=== PATIENT | male | born 1955 | race African-American/Black ===

== ENCOUNTER 2019-03-04 19:43 | Inpatient (IN) ==
[2019-03-04 20:19] LABS: Basophils # 0.1 10*3/uL (0.0-0.2); Basophils % 0.7 % (0.0-0.8); Eosinophils # 0.2 10*3/uL (0.0-0.87); Eosinophils % 2.9 % (0.00-10.9); Hemoglobin 11.9 GM/DL (14.0-18.0); Immature Granulocytes % 0.3 %; Immature Granulocytes Absolute 0.02 #; Lymphocytes # 1.8 10*3/uL (1.4-4.0); Lymphocytes % 25.2 % (21.2-54.2); Mean Corpuscular HGB Conc 30.5 GM/DL (32-36); Mean Platelet Volume 10.1 FL (9.6-12.0); Monocytes % 7.7 % (1.7-12.7); Neutrophils % 63.2 % (38.7-73.9); Platelet Count 188 T/CUMM (130-400); Red Blood Count 4.43 MC/CUMM (3.8-5.5); Red Cell Distribution Width 14.8 % (9.3-17.3)
[2019-03-04 20:45] LABS: Albumin 3.2 G/DL (3.4-5.0); Bilirubin,Total 0.5 MG/DL (0.2-1.0); CKMB % 1.6 %; Calcium 8.4 MG/DL (8.5-10.1); Osmolality,Calculated 284.1 MOS/KG (273-304); Total Protein 6.3 G/DL (6.4-8.3); Troponin I 0.184 NG/ML (0.00-0.045)
[2019-03-04] MEDS ORDERED: HEPARIN 5,000 UNIT/1 ML VIAL IV ONE (21:28)
[2019-03-04 21:51] LABS: INR 0.9; PT Patient Result 10.2 SECS (9.6-12.2); Partial Thromboplastin Time 27.9 SECS (20.8-36.0)
[2019-03-04 21:55] LABS: Apearance,Urine CLEAR (Clear); Bilirubin,Urine Negative (Negative); Blood, Urine Negative (Negative); Glucose,Urine (UA) Negative (Negative); Ketones,Urine Negative (Negative); Mucus,Urine Occasional /LPF (Occasional); Nitrite,Urine Negative (Negative); Protein,Urine Negative; RBC,Urine 1 /HPF (0-4); Urine Color Straw (Yellow); Urine Specific Gravity 1.009 (1.001-1.035); Urine Urobilinogen < 2.0 EU/DL (0.2-1.0); WBC,Urine <1 /HPF (0-6)
[2019-03-04] MEDS: HEPARIN DRIP 25,000 UNITS/500 ML PREMIX IV SCH (22:07)
[2019-03-04 23:05] LABS: Barbiturates Screen,Urine Negative (Negative); Benzodiazepines Screen,Urine Negative (Negative); Cannabinoid Screen,Urine Negative (Negative); Opiate Screen,Urine Negative (Negative); Phencyclidine Screen,Urine Negative (Negative)
[2019-03-05] MEDS ORDERED: ACETAMINOPHEN 325 MG TABLET PO PRN (00:27)
[2019-03-05] MEDS ORDERED: ONDANSETRON 4 MG/2 ML VIAL IV PRN (00:27)
[2019-03-05 01:35] LABS: PT Patient Result 10.5 SECS (9.6-12.2)
[2019-03-05 01:48] LABS: Partial Thromboplastin Time 72.1 SECS (20.8-36.0)
[2019-03-05 01:54] LABS: CKMB % 1.6 %; Troponin I 0.159 NG/ML (0.00-0.045)
[2019-03-05] MEDS: lisinopriL 5 MG TABLET PO SCH ×2 (09:00→21:07)
[2019-03-05] MEDS: PANTOPRAZOLE 40 MG TABLET PO SCH (09:00)
[2019-03-05] MEDS: ASPIRIN 325 MG TABLET PO SCH (09:00)
[2019-03-05] MEDS: carvediloL 6.25 MG TABLET PO SCH ×2 (09:00→21:07)
[2019-03-05 11:17] LABS: INR 0.9; PT Patient Result 10.1 SECS (9.6-12.2)
[2019-03-05 11:28] LABS: Partial Thromboplastin Time 51.2 SECS (20.8-36.0)
[2019-03-05] MEDS ORDERED: ATORVASTATIN 40 MG TABLET PO SCH (21:00)
[2019-03-05] MEDS: HEPARIN DRIP 25,000 UNITS/500 ML PREMIX IV SCH (22:59)
[2019-03-06] MEDS: carvediloL 12.5 MG TABLET PO SCH ×2 (05:30→09:16)
[2019-03-06 06:33] LABS: Calcium 8.6 MG/DL (8.5-10.1); Osmolality,Calculated 282.3 MOS/KG (273-304)
[2019-03-06 08:36] VITALS: BP 114/75
[2019-03-06] MEDS: ASPIRIN 325 MG TABLET PO SCH (09:16)
[2019-03-06] MEDS: PANTOPRAZOLE 40 MG TABLET PO SCH (09:16)
[2019-03-06] MEDS: lisinopriL 5 MG TABLET PO SCH (09:16)
== END 2019-03-06 13:01 | disposition home or self-care (01) | DRG 198 ==
LOC: N.EDINP 19:43 → N.ED 19:43 → N.TELEN 23:55
PROVIDERS: ADMIT Internal Medicine; ATTEND Internal Medicine

== ENCOUNTER 2020-07-02 09:53 | Observation (INO) ==
[2020-07-02 11:43] LABS: Basophils # 0.1 10*3/uL (0.0-0.2); Basophils % 0.8 % (0.0-0.8); Eosinophils # 0.3 10*3/uL (0.0-0.87); Eosinophils % 3.9 % (0.00-10.9); Hematocrit 42.9 VOL% (42.0-52.0); Immature Granulocytes % 0.3 %; Immature Granulocytes Absolute 0.02 #; Lymphocytes # 1.5 10*3/uL (1.4-4.0); Lymphocytes % 21.4 % (21.2-54.2); Mean Corpuscular HGB Conc 30.3 GM/DL (32-36); Mean Corpuscular Volume 90.5 FL (87-102); Mean Platelet Volume 10.3 FL (9.6-12.0); Monocytes % 10.7 % (1.7-12.7); Neutrophils % 62.9 % (38.7-73.9); Platelet Count 205 T/CUMM (130-400); Red Blood Count 4.74 MC/CUMM (3.8-5.5); Red Cell Distribution Width 13.4 % (9.3-17.3); White Blood Count 7.1 T/CUMM (4-12)
[2020-07-02 12:03] LABS: Alanine Aminotransferase 37 U/L (16-61); Albumin 3.4 G/DL (3.4-5.0); Alkaline Phosphatase 76 U/L (45-117); Aspartate Amino Transferase 37 U/L (0-37); Blood Urea Nitrogen 14 MG/DL (7-18); Calcium 8.7 MG/DL (8.5-10.1); Carbon Dioxide 27 MMOL/L (21-32); Estimated Glom Filtration Rate 81 ML/MIN; Glucose 94 MG/DL (74-106); Osmolality,Calculated 270.1 MOS/KG (273-304); Potassium 4.5 MMOL/L (3.5-5.1); Sodium 135 MMOL/L (136-145); Total Protein 6.5 G/DL (6.4-8.2); Troponin I 0.073 NG/ML (0.00-0.045)
[2020-07-02] MEDS ORDERED: DEXTROSE 50% 25 GM/50 ML VIAL IV PRN (13:43)
[2020-07-02] MEDS ORDERED: ACETAMINOPHEN 325 MG TABLET PO PRN (13:43)
[2020-07-02] MEDS ORDERED: ALBUTEROL 2.5 MG/3 ML NEB RESP TX PRN (13:43)
[2020-07-02] MEDS ORDERED: BISACODYL 5 MG TABLET PO PRN (13:43)
[2020-07-02] MEDS ORDERED: GLUCAGON 1 MG VIAL IM PRN (13:43)
[2020-07-02] MEDS ORDERED: guaiFENesin/DM ER 600-30 MG TABLET PO PRN (13:43)
[2020-07-02] MEDS ORDERED: ONDANSETRON 4 MG/2 ML VIAL IV PRN (13:43)
[2020-07-02] MEDS ORDERED: ASPIRIN CHEW 81 MG TABLET PO STA (13:53)
[2020-07-02] MEDS ORDERED: ENOXAPARIN 40 MG/0.4 ML SYRINGE SUBCUT SCH (14:00)
[2020-07-02] MEDS ORDERED: PNEUMOCOCCAL VACCINE (13 VALENT) 0.5 ML SYRINGE IM ONE (14:40)
[2020-07-02] MEDS: INSULIN LISPRO 100 UNIT/ML SUBCUT SCH ×2 (16:50→20:22)
[2020-07-02] MEDS: LATANOPROST 0.005% OPH SOLN 2.5 ML BOTTLE BOTH EYES SCH (20:22)
[2020-07-02] MEDS: carvediloL 12.5 MG TABLET PO SCH (20:22)
[2020-07-02] MEDS: ATORVASTATIN 40 MG TABLET PO SCH (20:22)
[2020-07-03 06:02] LABS: Basophils # 0.1 10*3/uL (0.0-0.2); Eosinophils # 0.3 10*3/uL (0.0-0.87); Eosinophils % 4.2 % (0.00-10.9); Hemoglobin 11.7 GM/DL (14.0-18.0); Immature Granulocytes % 0.3 %; Immature Granulocytes Absolute 0.02 #; Lymphocytes # 1.4 10*3/uL (1.4-4.0); Mean Corpuscular HGB Conc 30.8 GM/DL (32-36); Mean Corpuscular Volume 88.6 FL (87-102); Mean Platelet Volume 10.7 FL (9.6-12.0); Monocytes % 10.4 % (1.7-12.7); Neutrophils % 61.1 % (38.7-73.9); Platelet Count 200 T/CUMM (130-400); Red Blood Count 4.29 MC/CUMM (3.8-5.5); Red Cell Distribution Width 13.3 % (9.3-17.3)
[2020-07-03 06:27] LABS: Eosinophils 5 % (0-10); Hypochromasia Slight; Lymphocytes 18 % (20-55); Microcytosis Slight; Platelet Estimate Adequate; Segmented Neutrophils 65 % (50-85); Total Cells Counted 100
[2020-07-03 06:30] LABS: Calcium 8.5 MG/DL (8.5-10.1); Osmolality,Calculated 276.7 MOS/KG (273-304); Potassium 4.2 MMOL/L (3.5-5.1)
[2020-07-03] MEDS: carvediloL 12.5 MG TABLET PO SCH ×2 (08:19→21:51)
[2020-07-03] MEDS: FUROSEMIDE 40 MG/4 ML VIAL IV SCH (08:19)
[2020-07-03] MEDS: INSULIN LISPRO 100 UNIT/ML SUBCUT SCH ×4 (08:19→20:59)
[2020-07-03] MEDS: ASPIRIN EC 81 MG TABLET PO SCH (08:19)
[2020-07-03] MEDS: PANTOPRAZOLE 40 MG TABLET PO SCH (08:19)
[2020-07-03] MEDS: ENOXAPARIN 80 MG/0.8 ML SYRINGE SUBCUT SCH (16:43)
[2020-07-03] MEDS: LATANOPROST 0.005% OPH SOLN 2.5 ML BOTTLE BOTH EYES SCH (21:51)
[2020-07-03] MEDS: ATORVASTATIN 40 MG TABLET PO SCH (21:51)
[2020-07-04 07:49] VITALS: BP 98/62
[2020-07-04] MEDS: INSULIN LISPRO 100 UNIT/ML SUBCUT SCH (08:51)
[2020-07-04] MEDS: FUROSEMIDE 40 MG/4 ML VIAL IV SCH (08:52)
[2020-07-04] MEDS: PANTOPRAZOLE 40 MG TABLET PO SCH (08:52)
[2020-07-04] MEDS: ASPIRIN EC 81 MG TABLET PO SCH (08:52)
[2020-07-04] MEDS: ENOXAPARIN 80 MG/0.8 ML SYRINGE SUBCUT SCH (08:52)
[2020-07-04] MEDS: carvediloL 12.5 MG TABLET PO SCH (08:52)
== END 2020-07-04 10:35 | disposition home or self-care (01) ==
LOC: N.EDINP 09:53 → N.ED 09:53 → N.EDINP 14:23 → N.5E 14:29
PROVIDERS: ADMIT Internal Medicine; ATTEND Internal Medicine

== ENCOUNTER 2020-07-27 12:56 | Observation (INO) ==
[2020-07-27 13:37] LABS: Basophils # 0.1 10*3/uL (0.0-0.2); Eosinophils % 0.4 % (0.00-10.9); Hematocrit 40.7 VOL% (42.0-52.0); Hemoglobin 12.5 GM/DL (14.0-18.0); Immature Granulocytes % 0.4 %; Immature Granulocytes Absolute 0.03 #; Lymphocytes # 2.3 10*3/uL (1.4-4.0); Lymphocytes % 27.6 % (21.2-54.2); Mean Corpuscular HGB Conc 30.7 GM/DL (32-36); Mean Corpuscular Volume 88.9 FL (87-102); Mean Platelet Volume 10.9 FL (9.6-12.0); Monocytes % 6.9 % (1.7-12.7); Neutrophils % 63.7 % (38.7-73.9); Platelet Count 204 T/CUMM (130-400); Red Blood Count 4.58 MC/CUMM (3.8-5.5); Red Cell Distribution Width 13.7 % (9.3-17.3); White Blood Count 8.3 T/CUMM (4-12)
[2020-07-27 13:54] LABS: Albumin 3.7 G/DL (3.4-5.0); Bilirubin,Total 0.5 MG/DL (0.2-1.0); Calcium 8.9 MG/DL (8.5-10.1); Osmolality,Calculated 283.4 MOS/KG (273-304); Potassium 4.2 MMOL/L (3.5-5.1); Total Protein 6.5 G/DL (6.4-8.2)
[2020-07-27] MEDS ORDERED: FUROSEMIDE 40 MG/4 ML VIAL IV STA (14:31)
[2020-07-27 14:38] LABS: Acanthocytes 2+; Hypochromasia 2+; Lymphocytes 28 % (20-55); Platelet Estimate Normal; Poikilocytosis 2+; Segmented Neutrophils 69 % (50-85); Total Cells Counted 100
[2020-07-27] MEDS ORDERED: ZALEPLON 5 MG CAPSULE PO PRN (15:25)
[2020-07-27] MEDS ORDERED: MAGNESIUM SULF RIDER 2 GM/50 ML PREMIX IV PRN (15:25)
[2020-07-27] MEDS ORDERED: GLUCAGON 1 MG VIAL IM PRN (15:25)
[2020-07-27] MEDS ORDERED: ONDANSETRON 4 MG/2 ML VIAL IV PRN (15:25)
[2020-07-27] MEDS ORDERED: DEXTROSE 50% 25 GM/50 ML VIAL IV PRN (15:25)
[2020-07-27] MEDS ORDERED: MAGNESIUM SULF RIDER 4 GM/100 ML PREMIX IV PRN (15:25)
[2020-07-27 15:27] LABS: INR 1.1; Partial Thromboplastin Time 30.3 SECS (23.9-33.8)
[2020-07-27] MEDS ORDERED: ENOXAPARIN 40 MG/0.4 ML SYRINGE SUBCUT SCH (15:30)
[2020-07-27] MEDS ORDERED: FUROSEMIDE 40 MG/4 ML VIAL IV SCH (15:30)
[2020-07-27] MEDS ORDERED: FLUTICASONE 50 MCG NASAL SPRAY 16 GM BOTTLE BOTH NARES PRN (15:46)
[2020-07-27] MEDS ORDERED: COLCHICINE 0.6 MG CAPSULE PO SCH (16:00)
[2020-07-27 16:14] LABS: Calcium 8.9 MG/DL (8.5-10.1); Osmolality,Calculated 280.7 MOS/KG (273-304); Potassium 4.1 MMOL/L (3.5-5.1)
[2020-07-27 16:15] LABS: Risk Ratio 2.58; Thyroid Stimulating Hormone 0.753 uIU/ml (0.358-3.74)
[2020-07-27 16:19] LABS: ABG Base Excess -0.4 MMOL/L (-2.5-2.5); ABG HCO3 24.1 MMOL/L (20-26); ABG Oxygen Saturation 99.1 % (95-100); ABG PCO2 35.7 MM HG (35-48); ABG PH 7.426 (7.35-7.45); ABG TCO2 20.5 MMOL/L (23-27)
[2020-07-27] MEDS: FUROSEMIDE 40 MG/4 ML VIAL IV SCH (17:12)
[2020-07-27] MEDS: INSULIN REGULAR 100 UNIT/ML SUBCUT SCH (17:12)
[2020-07-27] MEDS: carvediloL 12.5 MG TABLET PO SCH (17:43)
[2020-07-27] MEDS: ALBUTEROL 2.5 MG/3 ML NEB RESP TX SCH (20:05)
[2020-07-27] MEDS: LATANOPROST 0.005% OPH SOLN 2.5 ML BOTTLE BOTH EYES SCH ×2 (21:26→22:26)
[2020-07-27] MEDS: MELATONIN 3 MG TABLET PO SCH (21:26)
[2020-07-27] MEDS: metFORMIN 500 MG TABLET PO SCH (21:27)
[2020-07-27] MEDS: PREGABALIN 75 MG CAPSULE PO SCH (21:27)
[2020-07-27] MEDS: APIXABAN 5 MG TABLET PO SCH (21:27)
[2020-07-27] MEDS: ATORVASTATIN 40 MG TABLET PO SCH (21:27)
[2020-07-27] MEDS: lisinopriL 5 MG TABLET PO SCH (21:38)
[2020-07-28 05:06] LABS: Basophils # 0.1 10*3/uL (0.0-0.2); Basophils % 0.9 % (0.0-0.8); Eosinophils # 0.1 10*3/uL (0.0-0.87); Eosinophils % 1.6 % (0.00-10.9); Hematocrit 36.4 VOL% (42.0-52.0); Hemoglobin 11.4 GM/DL (14.0-18.0); Immature Granulocytes % 0.4 %; Immature Granulocytes Absolute 0.03 #; Lymphocytes # 1.7 10*3/uL (1.4-4.0); Lymphocytes % 22.9 % (21.2-54.2); Mean Corpuscular HGB Conc 31.3 GM/DL (32-36); Mean Corpuscular Volume 87.5 FL (87-102); Mean Platelet Volume 10.7 FL (9.6-12.0); Monocytes % 9.7 % (1.7-12.7); Neutrophils % 64.5 % (38.7-73.9); Platelet Count 165 T/CUMM (130-400); Red Blood Count 4.16 MC/CUMM (3.8-5.5); Red Cell Distribution Width 13.6 % (9.3-17.3); White Blood Count 7.6 T/CUMM (4-12)
[2020-07-28 05:43] LABS: Calcium 8.4 MG/DL (8.5-10.1); Osmolality,Calculated 279.7 MOS/KG (273-304); Potassium 4.1 MMOL/L (3.5-5.1); Risk Ratio 2.89; Thyroid Stimulating Hormone 0.507 uIU/ml (0.358-3.74); VLDL CHOLESTEROL 11.8 MG/DL
[2020-07-28] MEDS: ALBUTEROL 2.5 MG/3 ML NEB RESP TX SCH ×4 (06:24→21:25)
[2020-07-28] MEDS ORDERED: PANTOPRAZOLE 40 MG TABLET PO SCH (09:00)
[2020-07-28] MEDS: metFORMIN 500 MG TABLET PO SCH ×2 (09:01→23:02)
[2020-07-28] MEDS: lisinopriL 5 MG TABLET PO SCH ×2 (09:02→21:58)
[2020-07-28] MEDS: FOLIC ACID 1 MG TABLET PO SCH (09:02)
[2020-07-28] MEDS: PREGABALIN 75 MG CAPSULE PO SCH ×3 (09:02→23:02)
[2020-07-28] MEDS: APIXABAN 5 MG TABLET PO SCH ×2 (09:02→22:26)
[2020-07-28] MEDS: ASPIRIN EC 81 MG TABLET PO SCH (09:02)
[2020-07-28] MEDS: carvediloL 12.5 MG TABLET PO SCH ×2 (09:02→17:07)
[2020-07-28] MEDS: PANTOPRAZOLE 40 MG TABLET PO SCH (09:02)
[2020-07-28] MEDS: FUROSEMIDE 40 MG/4 ML VIAL IV SCH ×2 (09:03→17:03)
[2020-07-28] MEDS: INSULIN REGULAR 100 UNIT/ML SUBCUT SCH ×2 (09:03→17:07)
[2020-07-28] MEDS ORDERED: DEXTROSE 50% 25 GM/50 ML VIAL IV PRN (15:48)
[2020-07-28] MEDS ORDERED: SODIUM CHLORIDE 0.9% 250 ML IV ONE (18:10)
[2020-07-28] MEDS: MELATONIN 3 MG TABLET PO SCH (22:26)
[2020-07-28] MEDS: ATORVASTATIN 40 MG TABLET PO SCH (22:26)
[2020-07-29] MEDS: ALBUTEROL 2.5 MG/3 ML NEB RESP TX SCH ×4 (02:23→19:39)
[2020-07-29 06:24] LABS: Basophils # 0.1 10*3/uL (0.0-0.2); Basophils % 0.9 % (0.0-0.8); Eosinophils # 0.1 10*3/uL (0.0-0.87); Eosinophils % 2.4 % (0.00-10.9); Hematocrit 38.5 VOL% (42.0-52.0); Hemoglobin 11.9 GM/DL (14.0-18.0); Immature Granulocytes % 0.3 %; Immature Granulocytes Absolute 0.02 #; Lymphocytes # 1.6 10*3/uL (1.4-4.0); Lymphocytes % 27.8 % (21.2-54.2); Mean Corpuscular HGB Conc 30.9 GM/DL (32-36); Mean Corpuscular Volume 87.7 FL (87-102); Mean Platelet Volume 10.7 FL (9.6-12.0); Monocytes % 8.4 % (1.7-12.7); Neutrophils % 60.2 % (38.7-73.9); Platelet Count 191 T/CUMM (130-400); Red Blood Count 4.39 MC/CUMM (3.8-5.5); Red Cell Distribution Width 13.5 % (9.3-17.3); White Blood Count 5.8 T/CUMM (4-12)
[2020-07-29 06:38] LABS: Osmolality,Calculated 279.8 MOS/KG (273-304); Potassium 3.6 MMOL/L (3.5-5.1)
[2020-07-29 07:36] LABS: Eosinophils 2 % (0-10); Lymphocytes 21 % (20-55); Segmented Neutrophils 66 % (50-85); Total Cells Counted 100
[2020-07-29 07:37] LABS: Hypochromasia 1+; Microcytosis Slight; Platelet Estimate Adequate
[2020-07-29] MEDS: INSULIN REGULAR 100 UNIT/ML SUBCUT SCH ×2 (09:16→15:40)
[2020-07-29] MEDS: PREGABALIN 75 MG CAPSULE PO SCH ×3 (09:32→20:55)
[2020-07-29] MEDS: carvediloL 12.5 MG TABLET PO SCH (09:33)
[2020-07-29] MEDS: PANTOPRAZOLE 40 MG TABLET PO SCH (09:33)
[2020-07-29] MEDS: APIXABAN 5 MG TABLET PO SCH ×2 (09:33→20:54)
[2020-07-29] MEDS: metFORMIN 500 MG TABLET PO SCH ×2 (09:33→20:54)
[2020-07-29] MEDS: FUROSEMIDE 40 MG/4 ML VIAL IV SCH (09:33)
[2020-07-29] MEDS: FOLIC ACID 1 MG TABLET PO SCH (09:33)
[2020-07-29] MEDS: ASPIRIN EC 81 MG TABLET PO SCH (09:33)
[2020-07-29] MEDS: lisinopriL 5 MG TABLET PO SCH (09:39)
[2020-07-29] MEDS ORDERED: carvediloL 6.25 MG TABLET PO SCH (17:00)
[2020-07-29] MEDS: MELATONIN 3 MG TABLET PO SCH (20:54)
[2020-07-29] MEDS: ATORVASTATIN 40 MG TABLET PO SCH (20:54)
[2020-07-29] MEDS: LATANOPROST 0.005% OPH SOLN 2.5 ML BOTTLE BOTH EYES SCH (20:55)
[2020-07-29] MEDS: lisinopriL 2.5 MG TABLET PO SCH (20:55)
[2020-07-30] MEDS: ALBUTEROL 2.5 MG/3 ML NEB RESP TX SCH ×4 (00:39→20:27)
[2020-07-30 05:54] LABS: Calcium 8.4 MG/DL (8.5-10.1); Osmolality,Calculated 277.7 MOS/KG (273-304); Potassium 4.1 MMOL/L (3.5-5.1)
[2020-07-30] MEDS: INSULIN REGULAR 100 UNIT/ML SUBCUT SCH ×2 (08:52→15:45)
[2020-07-30] MEDS: metFORMIN 500 MG TABLET PO SCH ×2 (09:50→20:58)
[2020-07-30] MEDS: FUROSEMIDE 40 MG/4 ML VIAL IV SCH (09:50)
[2020-07-30] MEDS: APIXABAN 5 MG TABLET PO SCH ×2 (09:50→20:59)
[2020-07-30] MEDS: ASPIRIN EC 81 MG TABLET PO SCH (09:50)
[2020-07-30] MEDS: PREGABALIN 75 MG CAPSULE PO SCH ×3 (09:50→20:59)
[2020-07-30] MEDS: carvediloL 3.125 MG TABLET PO SCH ×2 (09:50→11:19)
[2020-07-30] MEDS: FOLIC ACID 1 MG TABLET PO SCH (09:50)
[2020-07-30] MEDS: PANTOPRAZOLE 40 MG TABLET PO SCH (09:51)
[2020-07-30] MEDS: lisinopriL 2.5 MG TABLET PO SCH ×2 (09:51→11:19)
[2020-07-30] MEDS ORDERED: SODIUM CHLORIDE 0.9% 250 ML IV ONE (11:10)
[2020-07-30] MEDS: MELATONIN 3 MG TABLET PO SCH (20:58)
[2020-07-30] MEDS: ATORVASTATIN 40 MG TABLET PO SCH (20:59)
[2020-07-30] MEDS: LATANOPROST 0.005% OPH SOLN 2.5 ML BOTTLE BOTH EYES SCH (20:59)
[2020-07-31] MEDS: ALBUTEROL 2.5 MG/3 ML NEB RESP TX SCH ×2 (02:01→07:30)
[2020-07-31] MEDS: INSULIN REGULAR 100 UNIT/ML SUBCUT SCH (08:38)
[2020-07-31] MEDS ORDERED: FUROSEMIDE 40 MG TABLET PO SCH (09:00)
[2020-07-31] MEDS: metFORMIN 500 MG TABLET PO SCH (09:43)
[2020-07-31] MEDS: APIXABAN 5 MG TABLET PO SCH (09:44)
[2020-07-31] MEDS: FOLIC ACID 1 MG TABLET PO SCH (09:44)
[2020-07-31] MEDS: ASPIRIN EC 81 MG TABLET PO SCH (09:44)
[2020-07-31] MEDS: PREGABALIN 75 MG CAPSULE PO SCH (09:46)
[2020-07-31] MEDS: PANTOPRAZOLE 40 MG TABLET PO SCH (09:46)
[2020-07-31] MEDS ORDERED: carvediloL 3.125 MG TABLET PO SCH (10:00)
[2020-07-31 13:09] VITALS: BP 102/60
== END 2020-07-31 13:45 | disposition home or self-care (01) ==
LOC: N.EDINP 12:56 → N.ED 12:56 → SUATTDRO 16:11 → N.EDINP 16:57 → N.TELES 17:13
PROVIDERS: ADMIT Family Medicine; ATTEND Internal Medicine Geriatric Medicine

== ENCOUNTER 2020-09-22 20:10 | Observation (INO) ==
[2020-09-22 22:41] LABS: Basophils # 0.1 10*3/uL (0.0-0.2); Eosinophils # 0.2 10*3/uL (0.0-0.87); Eosinophils % 2.3 % (0.00-10.9); Hematocrit 39.8 VOL% (42.0-52.0); Hemoglobin 12.3 GM/DL (14.0-18.0); Immature Granulocytes % 0.3 %; Immature Granulocytes Absolute 0.02 #; Lymphocytes # 1.4 10*3/uL (1.4-4.0); Lymphocytes % 20.2 % (21.2-54.2); Mean Corpuscular HGB Conc 30.9 GM/DL (32-36); Mean Corpuscular Volume 87.1 FL (87-102); Mean Platelet Volume 10.5 FL (9.6-12.0); Monocytes % 8.7 % (1.7-12.7); Neutrophils % 67.5 % (38.7-73.9); Platelet Count 235 T/CUMM (130-400); Red Blood Count 4.57 MC/CUMM (3.8-5.5); Red Cell Distribution Width 15.1 % (9.3-17.3)
[2020-09-22 22:51] LABS: INR 1.1; PT Patient Result 12.4 SECS (10.5-12.0)
[2020-09-22 23:05] LABS: Albumin 3.1 G/DL (3.4-5.0); Bilirubin,Total 0.7 MG/DL (0.20-1.00); Calcium 8.4 MG/DL (8.5-10.1); Osmolality,Calculated 285.1 MOS/KG (273-304); Potassium 4.1 MMOL/L (3.5-5.1); Total Protein 5.7 G/DL (6.4-8.2)
[2020-09-22] MEDS ORDERED: DOBUTamine 500 MG/250 ML PREMIX IV PRN (23:52)
[2020-09-22] MEDS ORDERED: SODIUM CHLORIDE 0.9% 500 ML IV STA (23:53)
[2020-09-23] MEDS ORDERED: DEXTROSE 50% 25 GM/50 ML VIAL IV PRN (01:09)
[2020-09-23] MEDS ORDERED: ONDANSETRON 4 MG/2 ML VIAL IV PRN (01:09)
[2020-09-23] MEDS ORDERED: ACETAMINOPHEN 325 MG TABLET PO PRN (01:09)
[2020-09-23] MEDS ORDERED: GLUCAGON 1 MG VIAL IM PRN (01:09)
[2020-09-23] MEDS ORDERED: FUROSEMIDE 40 MG/4 ML VIAL IV STA (01:27)
[2020-09-23] MEDS ORDERED: ALBUTEROL INHALER 18 GM INH PRN (02:01)
[2020-09-23 07:22] LABS: Basophils # 0.1 10*3/uL (0.0-0.2); Basophils % 0.9 % (0.0-0.8); Eosinophils # 0.2 10*3/uL (0.0-0.87); Eosinophils % 2.6 % (0.00-10.9); Hematocrit 39.3 VOL% (42.0-52.0); Hemoglobin 12.7 GM/DL (14.0-18.0); Immature Granulocytes % 0.2 %; Immature Granulocytes Absolute 0.01 #; Lymphocytes # 1.1 10*3/uL (1.4-4.0); Lymphocytes % 19.6 % (21.2-54.2); Mean Corpuscular HGB Conc 32.3 GM/DL (32-36); Mean Corpuscular Volume 85.6 FL (87-102); Monocytes % 7.3 % (1.7-12.7); Neutrophils % 69.4 % (38.7-73.9); Platelet Count 232 T/CUMM (130-400); Red Blood Count 4.59 MC/CUMM (3.8-5.5); Red Cell Distribution Width 14.9 % (9.3-17.3); White Blood Count 5.8 T/CUMM (4-12)
[2020-09-23 08:04] LABS: Calcium 8.6 MG/DL (8.5-10.1); Osmolality,Calculated 285.1 MOS/KG (273-304); Potassium 3.6 MMOL/L (3.5-5.1)
[2020-09-23] MEDS: INSULIN LISPRO 100 UNIT/ML SUBCUT SCH ×4 (08:47→20:25)
[2020-09-23] MEDS: APIXABAN 5 MG TABLET PO SCH ×2 (08:48→21:18)
[2020-09-23] MEDS: CYPROHEPTADINE 4 MG TABLET PO SCH ×3 (08:48→21:17)
[2020-09-23] MEDS: ROSUVASTATIN 10 MG TABLET PO SCH (08:48)
[2020-09-23] MEDS: ASPIRIN EC 81 MG TABLET PO SCH (08:48)
[2020-09-23] MEDS: allopurinoL 100 MG TABLET PO SCH (08:48)
[2020-09-23] MEDS: PANTOPRAZOLE 40 MG TABLET PO SCH (08:48)
[2020-09-23] MEDS: carvediloL 3.125 MG TABLET PO SCH ×2 (08:48→21:17)
[2020-09-23] MEDS: LINACLOTIDE 145 MCG CAPSULE PO SCH (15:49)
[2020-09-23] MEDS ORDERED: FUROSEMIDE 40 MG/4 ML VIAL IV SCH (16:00)
[2020-09-24 05:53] LABS: Basophils # 0.1 10*3/uL (0.0-0.2); Basophils % 1.1 % (0.0-0.8); Eosinophils # 0.2 10*3/uL (0.0-0.87); Eosinophils % 3.3 % (0.00-10.9); Hematocrit 38.6 VOL% (42.0-52.0); Immature Granulocytes % 0.4 %; Immature Granulocytes Absolute 0.02 #; Lymphocytes # 1.5 10*3/uL (1.4-4.0); Lymphocytes % 27.4 % (21.2-54.2); Mean Corpuscular HGB Conc 31.1 GM/DL (32-36); Mean Corpuscular Volume 86.7 FL (87-102); Mean Platelet Volume 10.8 FL (9.6-12.0); Monocytes % 9.6 % (1.7-12.7); Neutrophils % 58.2 % (38.7-73.9); Platelet Count 233 T/CUMM (130-400); Red Blood Count 4.45 MC/CUMM (3.8-5.5); Red Cell Distribution Width 14.9 % (9.3-17.3); White Blood Count 5.5 T/CUMM (4-12)
[2020-09-24 06:23] LABS: Calcium 8.6 MG/DL (8.5-10.1); Osmolality,Calculated 280.5 MOS/KG (273-304); Potassium 3.4 MMOL/L (3.5-5.1)
[2020-09-24 07:00] LABS: Eosinophils 3 % (0-10); Hypochromasia 2+; Lymphocytes 23 % (20-55); Segmented Neutrophils 66 % (50-85); Total Cells Counted 100
[2020-09-24 07:01] LABS: Microcytosis 2+; Ovalocytes 1+; Platelet Estimate Normal; Polychromasia Slight
[2020-09-24] MEDS: INSULIN LISPRO 100 UNIT/ML SUBCUT SCH ×2 (07:38→11:25)
[2020-09-24] MEDS: LINACLOTIDE 145 MCG CAPSULE PO SCH (08:57)
[2020-09-24] MEDS: PANTOPRAZOLE 40 MG TABLET PO SCH (08:58)
[2020-09-24] MEDS: ASPIRIN EC 81 MG TABLET PO SCH (08:58)
[2020-09-24] MEDS: CYPROHEPTADINE 4 MG TABLET PO SCH (08:58)
[2020-09-24] MEDS: allopurinoL 100 MG TABLET PO SCH (08:58)
[2020-09-24] MEDS: APIXABAN 5 MG TABLET PO SCH (08:59)
[2020-09-24] MEDS: ROSUVASTATIN 10 MG TABLET PO SCH (08:59)
[2020-09-24] MEDS ORDERED: POTASSIUM CHLORIDE 20 MEQ TABLET PO ONE (09:02)
[2020-09-24] MEDS ORDERED: MAGNESIUM OXIDE 400 MG TABLET PO ONE (09:03)
[2020-09-24 11:37] VITALS: BP 97/73
[2020-09-24] MEDS: carvediloL 3.125 MG TABLET PO SCH (12:15)
== END 2020-09-24 14:50 | disposition home or self-care (01) ==
LOC: N.ED 20:10 → N.EDINP 20:10 → N.5E 09-23 02:55
PROVIDERS: ADMIT Internal Medicine; ATTEND Internal Medicine

== ENCOUNTER 2020-10-18 12:04 | Inpatient (IN) ==
[2020-10-18] MEDS ORDERED: DOCUSATE SODIUM 100 MG CAPSULE PO PRN (12:22)
[2020-10-18] MEDS ORDERED: ACETAMINOPHEN 325 MG TABLET PO PRN (12:22)
[2020-10-18] MEDS ORDERED: ONDANSETRON 4 MG/2 ML VIAL IV PRN (12:22)
[2020-10-18] MEDS ORDERED: guaiFENesin/DM ER 600-30 MG TABLET PO PRN (12:22)
[2020-10-18] MEDS ORDERED: MAGNESIUM SULF RIDER 2 GM/50 ML PREMIX IV PRN (12:22)
[2020-10-18] MEDS ORDERED: BISACODYL 5 MG TABLET PO PRN (12:22)
[2020-10-18] MEDS ORDERED: MAGNESIUM SULF RIDER 4 GM/100 ML PREMIX IV PRN (12:22)
[2020-10-18] MEDS ORDERED: MORPHINE 2 MG/1 ML SYRINGE IV PRN (12:22)
[2020-10-18] MEDS ORDERED: diphenhydrAMINE CAP 25 MG CAPSULE PO PRN (12:22)
[2020-10-18] MEDS ORDERED: ZALEPLON 5 MG CAPSULE PO PRN (12:22)
[2020-10-18] MEDS ORDERED: ALUMINUM/MAGNES/SIMETH MAX STR 30 ML UDCUP PO PRN (12:22)
[2020-10-18] MEDS ORDERED: PROMETHAZINE 25 MG TABLET PO PRN (12:22)
[2020-10-18] MEDS ORDERED: hydrALAZINE 20 MG/1 ML VIAL IV PRN (12:22)
[2020-10-18 14:01] LABS: Basophils # 0.1 10*3/uL (0.0-0.2); Eosinophils # 0.1 10*3/uL (0.0-0.87); Eosinophils % 1.3 % (0.00-10.9); Hematocrit 39.9 VOL% (42.0-52.0); Hemoglobin 12.1 GM/DL (14.0-18.0); Immature Granulocytes % 0.4 %; Immature Granulocytes Absolute 0.03 #; Lymphocytes # 1.5 10*3/uL (1.4-4.0); Lymphocytes % 18.8 % (21.2-54.2); Mean Corpuscular HGB Conc 30.3 GM/DL (32-36); Mean Corpuscular Volume 87.3 FL (87-102); Mean Platelet Volume 9.5 FL (9.6-12.0); Monocytes % 5.3 % (1.7-12.7); Neutrophils % 73.2 % (38.7-73.9); Platelet Count 290 T/CUMM (130-400); Red Blood Count 4.57 MC/CUMM (3.8-5.5); Red Cell Distribution Width 14.8 % (9.3-17.3); White Blood Count 7.7 T/CUMM (4-12)
[2020-10-18 14:37] LABS: Albumin 2.9 G/DL (3.4-5.0); Bilirubin,Total 0.7 MG/DL (0.20-1.00); Osmolality,Calculated 278.8 MOS/KG (273-304); Potassium 3.9 MMOL/L (3.5-5.1); Total Protein 7.2 G/DL (6.4-8.2)
[2020-10-18] MEDS: FUROSEMIDE 40 MG/4 ML VIAL IV SCH (16:23)
[2020-10-18] MEDS: DOBUTamine 500 MG/250 ML PREMIX IV SCH (17:20)
[2020-10-18] MEDS: APIXABAN 5 MG TABLET PO SCH (20:36)
[2020-10-18] MEDS: GABAPENTIN 300 MG CAPSULE PO SCH (20:36)
[2020-10-18] MEDS: LATANOPROST 0.005% OPH SOLN 2.5 ML BOTTLE LEFT EYE SCH (20:40)
[2020-10-19 03:20] LABS: Basophils # 0.1 10*3/uL (0.0-0.2); Basophils % 0.9 % (0.0-0.8); Eosinophils # 0.1 10*3/uL (0.0-0.87); Eosinophils % 1.2 % (0.00-10.9); Hematocrit 33.6 VOL% (42.0-52.0); Hemoglobin 10.5 GM/DL (14.0-18.0); Immature Granulocytes % 0.3 %; Immature Granulocytes Absolute 0.03 #; Lymphocytes # 1.6 10*3/uL (1.4-4.0); Lymphocytes % 17.7 % (21.2-54.2); Mean Corpuscular HGB Conc 31.3 GM/DL (32-36); Mean Corpuscular Volume 85.5 FL (87-102); Mean Platelet Volume 9.6 FL (9.6-12.0); Monocytes % 6.3 % (1.7-12.7); Neutrophils % 73.6 % (38.7-73.9); Platelet Count 253 T/CUMM (130-400); Red Blood Count 3.93 MC/CUMM (3.8-5.5); Red Cell Distribution Width 14.5 % (9.3-17.3); White Blood Count 9.2 T/CUMM (4-12)
[2020-10-19 03:43] LABS: Albumin 2.5 G/DL (3.4-5.0); Bilirubin,Total 1.1 MG/DL (0.20-1.00); Calcium 8.3 MG/DL (8.5-10.1); Potassium 3.9 MMOL/L (3.5-5.1)
[2020-10-19] MEDS ORDERED: lisinopriL 2.5 MG TABLET PO SCH (09:00)
[2020-10-19] MEDS: POTASSIUM CHLORIDE 10 MEQ TABLET PO SCH (09:11)
[2020-10-19] MEDS: APIXABAN 5 MG TABLET PO SCH ×2 (09:11→20:29)
[2020-10-19] MEDS: allopurinoL 100 MG TABLET PO SCH (09:11)
[2020-10-19] MEDS: ROSUVASTATIN 10 MG TABLET PO SCH (09:11)
[2020-10-19] MEDS: MULTIVITAMIN (CENTRUM) TABLET PO SCH (09:11)
[2020-10-19] MEDS: LORATADINE 10 MG TABLET PO SCH (09:11)
[2020-10-19] MEDS: GABAPENTIN 300 MG CAPSULE PO SCH ×2 (09:11→20:29)
[2020-10-19] MEDS: PANTOPRAZOLE 40 MG TABLET PO SCH (09:11)
[2020-10-19] MEDS: LINACLOTIDE 145 MCG CAPSULE PO SCH (09:12)
[2020-10-19] MEDS: FUROSEMIDE 40 MG/4 ML VIAL IV SCH ×2 (09:20→17:35)
[2020-10-19] MEDS: LATANOPROST 0.005% OPH SOLN 2.5 ML BOTTLE LEFT EYE SCH ×2 (09:20→20:29)
[2020-10-19] MEDS: DOBUTamine 500 MG/250 ML PREMIX IV SCH (15:56)
[2020-10-20 05:14] LABS: Calcium 8.3 MG/DL (8.5-10.1); Osmolality,Calculated 271.1 MOS/KG (273-304); Potassium 3.5 MMOL/L (3.5-5.1)
[2020-10-20] MEDS: FUROSEMIDE 40 MG/4 ML VIAL IV SCH ×2 (09:23→15:18)
[2020-10-20] MEDS: LATANOPROST 0.005% OPH SOLN 2.5 ML BOTTLE LEFT EYE SCH ×2 (09:29→21:00)
[2020-10-20] MEDS: LINACLOTIDE 145 MCG CAPSULE PO SCH (09:30)
[2020-10-20] MEDS: LORATADINE 10 MG TABLET PO SCH (09:32)
[2020-10-20] MEDS: PANTOPRAZOLE 40 MG TABLET PO SCH (09:32)
[2020-10-20] MEDS: ROSUVASTATIN 10 MG TABLET PO SCH (09:32)
[2020-10-20] MEDS: GABAPENTIN 300 MG CAPSULE PO SCH ×2 (09:32→21:01)
[2020-10-20] MEDS: MULTIVITAMIN (CENTRUM) TABLET PO SCH (09:32)
[2020-10-20] MEDS: POTASSIUM CHLORIDE 10 MEQ TABLET PO SCH (09:32)
[2020-10-20] MEDS: allopurinoL 100 MG TABLET PO SCH (09:33)
[2020-10-20] MEDS: APIXABAN 5 MG TABLET PO SCH ×2 (09:33→21:00)
[2020-10-20] MEDS ORDERED: POTASSIUM CHLORIDE 20 MEQ TABLET PO ONE (09:37)
[2020-10-20] MEDS: DOBUTamine 500 MG/250 ML PREMIX IV SCH (15:22)
[2020-10-21 06:26] LABS: Calcium 8.8 MG/DL (8.5-10.1); Osmolality,Calculated 265.4 MOS/KG (273-304); Potassium 3.8 MMOL/L (3.5-5.1)
[2020-10-21] MEDS: LATANOPROST 0.005% OPH SOLN 2.5 ML BOTTLE LEFT EYE SCH ×2 (09:11→20:59)
[2020-10-21] MEDS: APIXABAN 5 MG TABLET PO SCH ×2 (09:12→20:36)
[2020-10-21] MEDS: carvediloL 3.125 MG TABLET PO SCH ×2 (09:12→20:37)
[2020-10-21] MEDS: LINACLOTIDE 145 MCG CAPSULE PO SCH (09:12)
[2020-10-21] MEDS: MULTIVITAMIN (CENTRUM) TABLET PO SCH (09:12)
[2020-10-21] MEDS: ROSUVASTATIN 10 MG TABLET PO SCH (09:12)
[2020-10-21] MEDS: GABAPENTIN 300 MG CAPSULE PO SCH ×2 (09:13→20:36)
[2020-10-21] MEDS: allopurinoL 100 MG TABLET PO SCH (09:13)
[2020-10-21] MEDS: LORATADINE 10 MG TABLET PO SCH (09:13)
[2020-10-21] MEDS: PANTOPRAZOLE 40 MG TABLET PO SCH (09:13)
[2020-10-21] MEDS: POTASSIUM CHLORIDE 10 MEQ TABLET PO SCH (09:13)
[2020-10-21] MEDS: FUROSEMIDE 40 MG/4 ML VIAL IV SCH ×2 (10:59→16:40)
[2020-10-21] MEDS: DAPAGLIFLOZIN 5 MG TABLET PO SCH (11:12)
[2020-10-21] MEDS: DOBUTamine 500 MG/250 ML PREMIX IV SCH (18:15)
[2020-10-22 06:17] LABS: Osmolality,Calculated 271.1 MOS/KG (273-304); Potassium 4.9 MMOL/L (3.5-5.1)
[2020-10-22 06:26] LABS: Basophils # 0.1 10*3/uL (0.0-0.2); Basophils % 1.4 % (0.0-0.8); Eosinophils # 0.2 10*3/uL (0.0-0.87); Eosinophils % 2.1 % (0.00-10.9); Hematocrit 40.7 VOL% (42.0-52.0); Hemoglobin 12.6 GM/DL (14.0-18.0); Immature Granulocytes % 0.4 %; Immature Granulocytes Absolute 0.03 #; Lymphocytes # 1.3 10*3/uL (1.4-4.0); Lymphocytes % 17.8 % (21.2-54.2); Mean Corpuscular Volume 87.3 FL (87-102); Mean Platelet Volume 10.1 FL (9.6-12.0); Monocytes % 7.7 % (1.7-12.7); Neutrophils % 70.6 % (38.7-73.9); Platelet Count 300 T/CUMM (130-400); Red Blood Count 4.66 MC/CUMM (3.8-5.5); Red Cell Distribution Width 14.6 % (9.3-17.3)
[2020-10-22] MEDS: LINACLOTIDE 145 MCG CAPSULE PO SCH (08:56)
[2020-10-22] MEDS: DAPAGLIFLOZIN 5 MG TABLET PO SCH (08:57)
[2020-10-22] MEDS: ROSUVASTATIN 10 MG TABLET PO SCH (08:59)
[2020-10-22] MEDS: POTASSIUM CHLORIDE 10 MEQ TABLET PO SCH (08:59)
[2020-10-22] MEDS: carvediloL 3.125 MG TABLET PO SCH ×2 (09:01→21:28)
[2020-10-22] MEDS: allopurinoL 100 MG TABLET PO SCH (09:01)
[2020-10-22] MEDS: LORATADINE 10 MG TABLET PO SCH (09:01)
[2020-10-22] MEDS: PANTOPRAZOLE 40 MG TABLET PO SCH (09:01)
[2020-10-22] MEDS: GABAPENTIN 300 MG CAPSULE PO SCH ×2 (09:01→21:28)
[2020-10-22] MEDS: MULTIVITAMIN (CENTRUM) TABLET PO SCH (09:01)
[2020-10-22] MEDS: APIXABAN 5 MG TABLET PO SCH ×2 (09:01→21:28)
[2020-10-22] MEDS: LATANOPROST 0.005% OPH SOLN 2.5 ML BOTTLE LEFT EYE SCH ×2 (09:04→21:29)
[2020-10-22] MEDS: FUROSEMIDE 40 MG/4 ML VIAL IV SCH ×2 (10:45→16:32)
[2020-10-23 06:21] LABS: Calcium 9.1 MG/DL (8.5-10.1)
[2020-10-23 07:43] VITALS: BP 100/75
[2020-10-23] MEDS: POTASSIUM CHLORIDE 10 MEQ TABLET PO SCH (08:34)
[2020-10-23] MEDS: ROSUVASTATIN 10 MG TABLET PO SCH (08:34)
[2020-10-23] MEDS: MULTIVITAMIN (CENTRUM) TABLET PO SCH (08:34)
[2020-10-23] MEDS: LINACLOTIDE 145 MCG CAPSULE PO SCH (08:34)
[2020-10-23] MEDS: PANTOPRAZOLE 40 MG TABLET PO SCH (08:35)
[2020-10-23] MEDS: allopurinoL 100 MG TABLET PO SCH (08:35)
[2020-10-23] MEDS: DAPAGLIFLOZIN 5 MG TABLET PO SCH (08:35)
[2020-10-23] MEDS: GABAPENTIN 300 MG CAPSULE PO SCH (08:35)
[2020-10-23] MEDS: APIXABAN 5 MG TABLET PO SCH (08:35)
[2020-10-23] MEDS: LORATADINE 10 MG TABLET PO SCH (08:35)
[2020-10-23] MEDS: carvediloL 3.125 MG TABLET PO SCH (08:35)
[2020-10-23] MEDS: FUROSEMIDE 40 MG/4 ML VIAL IV SCH (08:40)
[2020-10-23] MEDS: LATANOPROST 0.005% OPH SOLN 2.5 ML BOTTLE LEFT EYE SCH (08:41)
== END 2020-10-23 09:30 | disposition home or self-care (01) | DRG 291 ==
LOC: N.TELES 13:12
PROVIDERS: ADMIT Internal Medicine Cardiovascular Disease; ATTEND Internal Medicine Cardiovascular Disease

== ENCOUNTER 2020-12-18 17:08 | Inpatient (IN) ==
[2020-12-18 18:19] LABS: Basophils # 0.1 10*3/uL (0.0-0.2); Basophils % 0.9 % (0.0-0.8); Eosinophils % 0.3 % (0.00-10.9); Hematocrit 42.1 VOL% (42.0-52.0); Hemoglobin 13.3 GM/DL (14.0-18.0); Immature Granulocytes % 0.7 %; Immature Granulocytes Absolute 0.07 #; Lymphocytes # 1.9 10*3/uL (1.4-4.0); Lymphocytes % 17.8 % (21.2-54.2); Mean Corpuscular HGB Conc 31.6 GM/DL (32-36); Mean Corpuscular Volume 84.9 FL (87-102); Mean Platelet Volume 10.7 FL (9.6-12.0); Monocytes % 9.5 % (1.7-12.7); NRBC # 0.03 10*3/uL; Neutrophils % 70.8 % (38.7-73.9); Platelet Count 237 T/CUMM (130-400); Red Blood Count 4.96 MC/CUMM (3.8-5.5); Red Cell Distribution Width 16.6 % (9.3-17.3); White Blood Count 10.5 T/CUMM (4-12)
[2020-12-18 18:21] LABS: Albumin 3.5 G/DL (3.4-5.0); Bilirubin,Total 1.3 MG/DL (0.20-1.00); Calcium 9.2 MG/DL (8.5-10.1); Osmolality,Calculated 275.2 MOS/KG (273-304); Potassium 4.3 MMOL/L (3.5-5.1); Total Protein 7.2 G/DL (6.4-8.2)
[2020-12-18 18:51] LABS: INR 1.2; PT Patient Result 12.9 SECS (10.5-12.0)
[2020-12-18] MEDS ORDERED: FUROSEMIDE 100 MG/10 ML VIAL IV STA (18:54)
[2020-12-18] MEDS ORDERED: AZITHROMYCIN INJ 500 MG in SODIUM CHLORIDE 0.9% 250 ML IV STA (19:48)
[2020-12-18] MEDS ORDERED: cefTRIAXone 1,000 MG in SODIUM CHLORIDE 0.9% 100 ML IV STA (19:48)
[2020-12-18] MEDS ORDERED: ONDANSETRON 4 MG/2 ML VIAL IV PRN (20:13)
[2020-12-18] MEDS ORDERED: GLUCAGON 1 MG VIAL IM PRN (20:13)
[2020-12-18] MEDS ORDERED: POTASSIUM CHLORIDE 20 MEQ TABLET PO PRN (20:42)
[2020-12-18] MEDS ORDERED: ALBUTEROL 2.5 MG/3 ML NEB RESP TX PRN (20:51)
[2020-12-18] MEDS ORDERED: LORATADINE 10 MG TABLET PO PRN (20:51)
[2020-12-18] MEDS ORDERED: INSULIN REGULAR 100 UNIT/ML SUBCUT SCH (21:00)
[2020-12-18] MEDS ORDERED: EPINEPHrine 1 MG/10 ML SYRINGE IV ONE (21:07)
[2020-12-18] MEDS ORDERED: SODIUM BICARBONATE 50 MEQ/50 ML SYRINGE IV ONE (21:08)
[2020-12-18] MEDS ORDERED: DOBUTamine 500 MG/250 ML PREMIX IV ONE (21:13)
[2020-12-18] MEDS ORDERED: ETOMIDATE 20 MG/10 ML VIAL IV ONE (21:15)
[2020-12-18] MEDS ORDERED: ROCURONIUM 100 MG/10 ML VIAL IV ONE (21:15)
[2020-12-18] MEDS: NOREPINEPHRINE 8 MG in SODIUM CHLORIDE 0.9% 242 ML IV PRN (22:00)
[2020-12-18 22:31] LABS: ABG Base Excess -17.4 MMOL/L (-2.5-2.5); ABG HCO3 11.4 MMOL/L (20-26); ABG Oxygen Saturation 99.3 % (95-100); ABG PCO2 26.1 MM HG (35-48); ABG TCO2 9.2 MMOL/L (23-27)
[2020-12-18 22:36] LABS: ABG PH 7.182 (7.35-7.45)
[2020-12-18 22:46] LABS: Basophils # 0.1 10*3/uL (0.0-0.2); Eosinophils # 0.1 10*3/uL (0.0-0.87); Eosinophils % 0.5 % (0.00-10.9); Hematocrit 45.8 VOL% (42.0-52.0); Immature Granulocytes % 6.9 %; Immature Granulocytes Absolute 0.85 #; Lymphocytes # 2.9 10*3/uL (1.4-4.0); Lymphocytes % 23.7 % (21.2-54.2); Mean Corpuscular HGB Conc 29.9 GM/DL (32-36); Mean Corpuscular Volume 88.1 FL (87-102); Mean Platelet Volume 10.6 FL (9.6-12.0); NRBC # 0.14 10*3/uL; Neutrophils % 62.9 % (38.7-73.9); Platelet Count 205 T/CUMM (130-400); White Blood Count 12.3 T/CUMM (4-12)
[2020-12-18 23:06] LABS: Hemoglobin 13.7 GM/DL (14.0-18.0)
[2020-12-18 23:07] LABS: Blood Urea Nitrogen 32 MG/DL (7-18); Calcium 8.4 MG/DL (8.5-10.1); Carbon Dioxide 21 MMOL/L (21-32); Estimated Glom Filtration Rate 33 ML/MIN; Glucose 78 MG/DL (74-106); Potassium 4.7 MMOL/L (3.5-5.1); Sodium 136 MMOL/L (136-145)
[2020-12-18 23:10] LABS: Band Neutrophils 7 % (0-10); Eosinophils 2 % (0-10); Lymphocytes 20 % (20-55); Nucleated Red Blood Cells 1 (0-5); Platelet Estimate Normal; Segmented Neutrophils 64 % (50-85); Total Cells Counted 100
[2020-12-18] MEDS ORDERED: SODIUM BICARBONATE 50 MEQ/50 ML VIAL IV ONE ×2 (23:11)
[2020-12-18] MEDS: DOBUTamine 500 MG/250 ML PREMIX IV PRN (23:28)
[2020-12-18 23:46] LABS: ABG Base Excess -8.4 MMOL/L (-2.5-2.5); ABG HCO3 17.7 MMOL/L (20-26); ABG Oxygen Saturation 99.5 % (95-100); ABG PCO2 30.2 MM HG (35-48); ABG PH 7.342 (7.35-7.45); ABG TCO2 15.1 MMOL/L (23-27)
[2020-12-19] MEDS: DEXTROSE 50% 25 GM/50 ML VIAL IV PRN (00:04)
[2020-12-19] MEDS: SODIUM BICARB INJ 150 MEQ in STERILE WATER INJ 1,000 ML IV SCH ×2 (00:07→12:33)
[2020-12-19] MEDS ORDERED: NOREPINEPHRINE 4 MG/4 ML VIAL IV ONE (00:14)
[2020-12-19] MEDS: NOREPINEPHRINE 8 MG in SODIUM CHLORIDE 0.9% 242 ML IV PRN (00:30)
[2020-12-19] MEDS ORDERED: ETOMIDATE 20 MG/10 ML VIAL IV ONE (00:45)
[2020-12-19] MEDS ORDERED: ROCURONIUM 100 MG/10 ML VIAL IV ONE (00:45)
[2020-12-19 00:51] LABS: Basophils # 0.1 10*3/uL (0.0-0.2); Basophils % 1.2 % (0.0-0.8); Eosinophils % 0.2 % (0.00-10.9); Hemoglobin 13.8 GM/DL (14.0-18.0); Immature Granulocytes % 6.6 %; Immature Granulocytes Absolute 0.79 #; Lymphocytes # 2.6 10*3/uL (1.4-4.0); Lymphocytes % 21.4 % (21.2-54.2); Mean Corpuscular HGB Conc 31.4 GM/DL (32-36); Mean Corpuscular Volume 85.6 FL (87-102); Monocytes % 7.1 % (1.7-12.7); NRBC # 0.13 10*3/uL; Neutrophils % 63.5 % (38.7-73.9); Platelet Count 175 T/CUMM (130-400); Red Blood Count 5.14 MC/CUMM (3.8-5.5); Red Cell Distribution Width 16.5 % (9.3-17.3); White Blood Count 12.1 T/CUMM (4-12)
[2020-12-19] MEDS: fentaNYL INJ 1,250 MCG in SODIUM CHLORIDE 0.9% 225 ML IV PRN ×2 (01:04→20:10)
[2020-12-19] MEDS: MIDAZOLAM 100 MG in SODIUM CHLORIDE 0.9% 80 ML IV PRN (01:07)
[2020-12-19] MEDS ORDERED: INFLUENZA VIRUS VACCINE 0.5 ML SYRINGE IM ONE (01:12)
[2020-12-19 01:18] LABS: INR 1.3; PT Patient Result 14.7 SECS (10.5-12.0); Partial Thromboplastin Time 22.1 SECS (23.9-33.8)
[2020-12-19 01:22] LABS: Alanine Aminotransferase 103 U/L (16-61); Albumin 3.1 G/DL (3.4-5.0); Alkaline Phosphatase 67 U/L (45-117); Amylase 172 U/L (25-115); Aspartate Amino Transferase 171 U/L (0-37); Blood Urea Nitrogen 37 MG/DL (7-18); Calcium 7.4 MG/DL (8.5-10.1); Carbon Dioxide 25 MMOL/L (21-32); Estimated Glom Filtration Rate 35 ML/MIN; Glucose 228 MG/DL (74-106); Potassium 5.4 MMOL/L (3.5-5.1); Sodium 136 MMOL/L (136-145); Total Protein 5.3 G/DL (6.4-8.2)
[2020-12-19 01:41] LABS: Platelet Estimate Normal
[2020-12-19] MEDS: GABAPENTIN 300 MG CAPSULE PO SCH ×3 (02:36→22:00)
[2020-12-19] MEDS: CYPROHEPTADINE 4 MG TABLET PO SCH ×4 (02:36→22:00)
[2020-12-19] MEDS: APIXABAN 5 MG TABLET PO SCH ×3 (02:36→22:00)
[2020-12-19 02:37] LABS: Calcium 7.6 MG/DL (8.5-10.1); Osmolality,Calculated 289.7 MOS/KG (273-304); Potassium 3.8 MMOL/L (3.5-5.1)
[2020-12-19 02:43] LABS: Bacteria,Urine Few /HPF (Few); Bilirubin,Urine Negative (Negative); Blood, Urine Negative (Negative); Glucose,Urine (UA) >=500 mg/dL (Negative); Ketones,Urine Negative (Negative); Nitrite,Urine Negative (Negative); Protein,Urine >=500 MG/DL; RBC,Urine 15 /HPF (0-4); Sperm,Urine Few /HPF (Negative); Squamous Epithelial Cell,Urine Occasional /HPF (0-10); Urine Appearance CLOUDY (Clear); Urine Color Yellow (Yellow); Urine Specific Gravity 1.009 (1.001-1.035); Urine Urobilinogen < 2.0 EU/DL (0.2-1.0)
[2020-12-19] MEDS: INSULIN REGULAR 100 UNIT/ML IV SCH ×5 (04:10→22:01)
[2020-12-19] MEDS ORDERED: PHENYLEPHRINE DRIP 40 MG/250 ML PREMIX IV PRN (04:21)
[2020-12-19 05:33] LABS: ABG Base Excess 1.8 MMOL/L (-2.5-2.5); ABG HCO3 28.2 MMOL/L (20-26); ABG Oxygen Saturation 99.4 % (95-100); ABG PCO2 51.6 MM HG (35-48); ABG PH 7.355 (7.35-7.45); ABG TCO2 29.8 MMOL/L (23-27); Basophils % 0.3 % (0.0-0.8); Eosinophils % 0.1 % (0.00-10.9); Hemoglobin 12.5 GM/DL (14.0-18.0); Immature Granulocytes % 1.3 %; Immature Granulocytes Absolute 0.17 #; Lymphocytes # 1.2 10*3/uL (1.4-4.0); Lymphocytes % 9.1 % (21.2-54.2); Mean Corpuscular HGB Conc 31.3 GM/DL (32-36); Mean Corpuscular Volume 85.7 FL (87-102); Monocytes % 6.1 % (1.7-12.7); Neutrophils % 83.1 % (38.7-73.9); Platelet Count 149 T/CUMM (130-400); Red Blood Count 4.67 MC/CUMM (3.8-5.5); Red Cell Distribution Width 16.4 % (9.3-17.3); White Blood Count 13.2 T/CUMM (4-12)
[2020-12-19 05:49] LABS: Albumin 2.9 G/DL (3.4-5.0); Bilirubin,Total 1.4 MG/DL (0.20-1.00); Calcium 7.5 MG/DL (8.5-10.1); Osmolality,Calculated 289.7 MOS/KG (273-304); Potassium 2.9 MMOL/L (3.5-5.1); Total Protein 5.9 G/DL (6.4-8.2)
[2020-12-19] MEDS ORDERED: INSULIN REGULAR 100 UNIT/ML SUBCUT SCH (06:00)
[2020-12-19] MEDS: POTASSIUM CHLORIDE RIDER 20 MEQ/100 ML PREMIX IV PRN ×4 (06:49→17:21)
[2020-12-19] MEDS: ASPIRIN EC 81 MG TABLET PO SCH (08:54)
[2020-12-19] MEDS: FUROSEMIDE 40 MG/4 ML VIAL IV SCH ×2 (08:54→16:11)
[2020-12-19] MEDS: MULTIVITAMIN (CENTRUM) TABLET PO SCH (08:54)
[2020-12-19] MEDS ORDERED: DAPAGLIFLOZIN 5 MG TABLET PO SCH (09:00)
[2020-12-19] MEDS ORDERED: ROSUVASTATIN 10 MG TABLET PO SCH (09:00)
[2020-12-19] MEDS ORDERED: PANTOPRAZOLE 40 MG TABLET PO SCH (09:00)
[2020-12-19] MEDS ORDERED: BRIMONIDINE 0.025% RIGHT EYE SCH (09:00)
[2020-12-19] MEDS: LINACLOTIDE 145 MCG CAPSULE PO SCH (09:14)
[2020-12-19] MEDS: allopurinoL 100 MG TABLET PO SCH (09:14)
[2020-12-19] MEDS: CISATRACURIUM 200 MG in SODIUM CHLORIDE 0.9% 180 ML IV PRN (09:29)
[2020-12-19] MEDS: LATANOPROST 0.005% OPH SOLN 2.5 ML BOTTLE LEFT EYE SCH ×2 (09:33→22:00)
[2020-12-19] MEDS: MINERAL OIL/PETROLATUM OPH OINT 3.5 GM TUBE BOTH EYES SCH ×3 (09:33→22:00)
[2020-12-19] MEDS: DOBUTamine 500 MG/250 ML PREMIX IV PRN ×2 (09:47→18:54)
[2020-12-19] MEDS: POTASSIUM CHLORIDE RIDER 10 MEQ/100 ML PREMIX IV PRN (10:37)
[2020-12-19 12:48] LABS: Basophils # 0.1 10*3/uL (0.0-0.2); Basophils % 0.6 % (0.0-0.8); Eosinophils # 0.1 10*3/uL (0.0-0.87); Eosinophils % 0.4 % (0.00-10.9); Hematocrit 37.2 VOL% (42.0-52.0); Hemoglobin 11.5 GM/DL (14.0-18.0); Immature Granulocytes % 0.8 %; Immature Granulocytes Absolute 0.09 #; Lymphocytes # 1.3 10*3/uL (1.4-4.0); Lymphocytes % 11.4 % (21.2-54.2); Mean Corpuscular HGB Conc 30.9 GM/DL (32-36); Mean Corpuscular Volume 85.7 FL (87-102); Mean Platelet Volume 10.8 FL (9.6-12.0); Monocytes % 6.7 % (1.7-12.7); Neutrophils % 80.1 % (38.7-73.9); Platelet Count 148 T/CUMM (130-400); Red Blood Count 4.34 MC/CUMM (3.8-5.5); Red Cell Distribution Width 16.3 % (9.3-17.3); White Blood Count 11.7 T/CUMM (4-12)
[2020-12-19 13:00] LABS: INR 1.8; Partial Thromboplastin Time 39.6 SECS (23.9-33.8)
[2020-12-19] MEDS ORDERED: SODIUM BICARB INJ 100 MEQ in STERILE WATER INJ 1,000 ML IV SCH (13:00)
[2020-12-19] MEDS: NOREPINEPHRINE 16 MG in SODIUM CHLORIDE 0.9% 234 ML IV PRN (18:55)
[2020-12-19 19:11] LABS: Basophils # 0.1 10*3/uL (0.0-0.2); Basophils % 0.9 % (0.0-0.8); Eosinophils # 0.1 10*3/uL (0.0-0.87); Eosinophils % 1.3 % (0.00-10.9); Hematocrit 36.5 VOL% (42.0-52.0); Hemoglobin 11.5 GM/DL (14.0-18.0); Immature Granulocytes % 0.4 %; Immature Granulocytes Absolute 0.04 #; Lymphocytes % 10.4 % (21.2-54.2); Mean Corpuscular HGB Conc 31.5 GM/DL (32-36); Mean Corpuscular Volume 85.7 FL (87-102); Mean Platelet Volume 11.1 FL (9.6-12.0); Monocytes % 4.9 % (1.7-12.7); Neutrophils % 82.1 % (38.7-73.9); Platelet Count 144 T/CUMM (130-400); Red Blood Count 4.26 MC/CUMM (3.8-5.5); Red Cell Distribution Width 16.2 % (9.3-17.3); White Blood Count 9.4 T/CUMM (4-12)
[2020-12-19 19:26] LABS: INR 1.7; PT Patient Result 18.4 SECS (10.5-12.0); Partial Thromboplastin Time 39.5 SECS (23.9-33.8)
[2020-12-19 22:00] LABS: Calcium 7.6 MG/DL (8.5-10.1); Osmolality,Calculated 285.7 MOS/KG (273-304); Potassium 3.5 MMOL/L (3.5-5.1)
[2020-12-20 00:23] LABS: Basophils # 0.1 10*3/uL (0.0-0.2); Basophils % 0.7 % (0.0-0.8); Eosinophils # 0.2 10*3/uL (0.0-0.87); Eosinophils % 1.9 % (0.00-10.9); Hematocrit 36.7 VOL% (42.0-52.0); Hemoglobin 11.5 GM/DL (14.0-18.0); Immature Granulocytes % 0.6 %; Immature Granulocytes Absolute 0.05 #; Lymphocytes # 0.7 10*3/uL (1.4-4.0); Lymphocytes % 8.1 % (21.2-54.2); Mean Corpuscular HGB Conc 31.3 GM/DL (32-36); Mean Corpuscular Volume 84.2 FL (87-102); Mean Platelet Volume 10.1 FL (9.6-12.0); Monocytes % 4.3 % (1.7-12.7); Neutrophils % 84.4 % (38.7-73.9); Platelet Count 140 T/CUMM (130-400); Red Blood Count 4.36 MC/CUMM (3.8-5.5); White Blood Count 8.9 T/CUMM (4-12)
[2020-12-20 00:32] LABS: INR 1.7
[2020-12-20 00:33] LABS: Partial Thromboplastin Time 41.6 SECS (23.9-33.8)
[2020-12-20 00:39] LABS: Calcium 7.3 MG/DL (8.5-10.1); Osmolality,Calculated 283.8 MOS/KG (273-304); Potassium 3.4 MMOL/L (3.5-5.1)
[2020-12-20] MEDS: INSULIN REGULAR 100 UNIT/ML IV SCH ×6 (01:44→20:36)
[2020-12-20] MEDS: CISATRACURIUM 200 MG in SODIUM CHLORIDE 0.9% 180 ML IV PRN (01:45)
[2020-12-20] MEDS: DOBUTamine 500 MG/250 ML PREMIX IV PRN ×4 (01:45→23:07)
[2020-12-20 03:15] LABS: ABG Base Excess 9.3 MMOL/L (-2.5-2.5); ABG HCO3 33.1 MMOL/L (20-26); ABG PCO2 43.1 MM HG (35-48); ABG TCO2 29.7 MMOL/L (23-27)
[2020-12-20 03:16] LABS: Basophils # 0.1 10*3/uL (0.0-0.2); Basophils % 0.6 % (0.0-0.8); Eosinophils # 0.1 10*3/uL (0.0-0.87); Eosinophils % 1.4 % (0.00-10.9); Hematocrit 36.7 VOL% (42.0-52.0); Hemoglobin 11.7 GM/DL (14.0-18.0); Immature Granulocytes % 0.4 %; Immature Granulocytes Absolute 0.03 #; Lymphocytes # 0.6 10*3/uL (1.4-4.0); Lymphocytes % 7.2 % (21.2-54.2); Mean Corpuscular HGB Conc 31.9 GM/DL (32-36); Mean Platelet Volume 10.6 FL (9.6-12.0); Monocytes % 3.9 % (1.7-12.7); Neutrophils % 86.5 % (38.7-73.9); Platelet Count 130 T/CUMM (130-400); Red Blood Count 4.42 MC/CUMM (3.8-5.5); White Blood Count 8.5 T/CUMM (4-12)
[2020-12-20 03:35] LABS: Albumin 2.4 G/DL (3.4-5.0); Bilirubin,Total 1.8 MG/DL (0.20-1.00); Calcium 7.4 MG/DL (8.5-10.1); Potassium 3.2 MMOL/L (3.5-5.1); Total Protein 5.2 G/DL (6.4-8.2)
[2020-12-20] MEDS: POTASSIUM CHLORIDE RIDER 10 MEQ/100 ML PREMIX IV PRN (04:05)
[2020-12-20 04:06] LABS: Hypochromasia Slight; Microcytosis Slight; Platelet Estimate Normal
[2020-12-20 06:40] LABS: Calcium 7.5 MG/DL (8.5-10.1); Potassium 3.5 MMOL/L (3.5-5.1)
[2020-12-20 06:58] LABS: CKMB % 3.6 %
[2020-12-20 06:59] LABS: High Sensitive Troponin I* 516.2 ng/L (0-78)
[2020-12-20] MEDS ORDERED: POTASSIUM CHLORIDE 20 MEQ TABLET PO ONE (08:09)
[2020-12-20] MEDS ORDERED: MAGNESIUM SULF RIDER 2 GM/50 ML PREMIX IV ONE (08:09)
[2020-12-20] MEDS: FUROSEMIDE 40 MG/4 ML VIAL IV SCH ×2 (08:11→17:02)
[2020-12-20] MEDS: CYPROHEPTADINE 4 MG TABLET PO SCH ×3 (08:12→20:42)
[2020-12-20] MEDS: allopurinoL 100 MG TABLET PO SCH (08:12)
[2020-12-20] MEDS: LINACLOTIDE 145 MCG CAPSULE PO SCH (08:12)
[2020-12-20] MEDS: GABAPENTIN 300 MG CAPSULE PO SCH (08:13)
[2020-12-20] MEDS: ASPIRIN EC 81 MG TABLET PO SCH (08:13)
[2020-12-20] MEDS: MULTIVITAMIN (CENTRUM) TABLET PO SCH (08:13)
[2020-12-20] MEDS: APIXABAN 5 MG TABLET PO SCH ×2 (08:13→20:42)
[2020-12-20] MEDS: ASPIRIN CHEW 81 MG TABLET PO SCH (08:26)
[2020-12-20] MEDS: PANTOPRAZOLE 40 MG VIAL IV SCH (08:29)
[2020-12-20] MEDS: MINERAL OIL/PETROLATUM OPH OINT 3.5 GM TUBE BOTH EYES SCH ×3 (08:31→20:42)
[2020-12-20] MEDS: LATANOPROST 0.005% OPH SOLN 2.5 ML BOTTLE LEFT EYE SCH ×2 (08:32→20:42)
[2020-12-20] MEDS: MULTIVITAMIN LIQUID (CENTRUM) 60 ML BOTTLE NG SCH (09:52)
[2020-12-20] MEDS: DEXTROSE 50% 25 GM/50 ML VIAL IV PRN (11:44)
[2020-12-20 12:22] LABS: Basophils % 0.2 % (0.0-0.8); Eosinophils # 0.1 10*3/uL (0.0-0.87); Eosinophils % 0.6 % (0.00-10.9); Hematocrit 39.6 VOL% (42.0-52.0); Hemoglobin 12.3 GM/DL (14.0-18.0); Immature Granulocytes % 0.4 %; Immature Granulocytes Absolute 0.04 #; Lymphocytes # 0.4 10*3/uL (1.4-4.0); Lymphocytes % 4.1 % (21.2-54.2); Mean Corpuscular HGB Conc 31.1 GM/DL (32-36); Mean Corpuscular Volume 85.3 FL (87-102); Mean Platelet Volume 10.6 FL (9.6-12.0); Monocytes % 3.9 % (1.7-12.7); Neutrophils % 90.8 % (38.7-73.9); Platelet Count 132 T/CUMM (130-400); Red Blood Count 4.64 MC/CUMM (3.8-5.5); Red Cell Distribution Width 16.3 % (9.3-17.3)
[2020-12-20 12:39] LABS: Calcium 7.6 MG/DL (8.5-10.1); Osmolality,Calculated 282.4 MOS/KG (273-304); Potassium 3.7 MMOL/L (3.5-5.1)
[2020-12-20 13:26] LABS: Anisocytosis 1+; Band Neutrophils 12 % (0-10); Eosinophils 1 % (0-10); Lymphocytes 4 % (20-55); Platelet Estimate Adequate; Polychromasia Slight; Segmented Neutrophils 76 % (50-85); Total Cells Counted 100
[2020-12-20 13:27] LABS: Macrocytosis 1+
[2020-12-20 15:04] LABS: Basophils % 0.3 % (0.0-0.8); Eosinophils # 0.1 10*3/uL (0.0-0.87); Eosinophils % 0.7 % (0.00-10.9); Hematocrit 38.7 VOL% (42.0-52.0); Hemoglobin 12.1 GM/DL (14.0-18.0); Immature Granulocytes % 0.5 %; Immature Granulocytes Absolute 0.05 #; Lymphocytes # 0.5 10*3/uL (1.4-4.0); Lymphocytes % 4.7 % (21.2-54.2); Mean Corpuscular HGB Conc 31.3 GM/DL (32-36); Mean Corpuscular Volume 85.1 FL (87-102); Mean Platelet Volume 10.7 FL (9.6-12.0); Monocytes % 4.5 % (1.7-12.7); Neutrophils % 89.3 % (38.7-73.9); Platelet Count 142 T/CUMM (130-400); Red Blood Count 4.55 MC/CUMM (3.8-5.5); Red Cell Distribution Width 16.2 % (9.3-17.3); White Blood Count 9.6 T/CUMM (4-12)
[2020-12-20 15:19] LABS: INR 1.5; PT Patient Result 16.4 SECS (10.5-12.0)
[2020-12-20 15:27] LABS: Albumin 2.5 G/DL (3.4-5.0); Bilirubin,Total 1.4 MG/DL (0.20-1.00); CKMB % 6.8 %; Calcium 7.2 MG/DL (8.5-10.1); Osmolality,Calculated 273.5 MOS/KG (273-304); Potassium 4.1 MMOL/L (3.5-5.1); Total Protein 5.6 G/DL (6.4-8.2)
[2020-12-20 15:45] LABS: Lymphocytes 3 % (20-55); Reactive Lymphocytes Few; Segmented Neutrophils 94 % (50-85); Total Cells Counted 100
[2020-12-20 15:46] LABS: Ovalocytes Slight
[2020-12-20] MEDS: fentaNYL INJ 1,250 MCG in SODIUM CHLORIDE 0.9% 225 ML IV PRN (18:22)
[2020-12-21] MEDS: INSULIN REGULAR 100 UNIT/ML IV SCH ×7 (00:08→23:32)
[2020-12-21 03:18] LABS: ABG Base Excess 8.7 MMOL/L (-2.5-2.5); ABG HCO3 32.5 MMOL/L (20-26); ABG Oxygen Saturation 99.7 % (95-100); ABG PCO2 55.5 MM HG (35-48); ABG PH 7.411 (7.35-7.45); ABG TCO2 31.2 MMOL/L (23-27)
[2020-12-21 03:45] LABS: Calcium 7.7 MG/DL (8.5-10.1); Osmolality,Calculated 274.5 MOS/KG (273-304); Potassium 4.8 MMOL/L (3.5-5.1)
[2020-12-21 04:28] LABS: Basophils % 0.2 % (0.0-0.8); Eosinophils % 0.1 % (0.00-10.9); Hematocrit 38.1 VOL% (42.0-52.0); Hemoglobin 11.7 GM/DL (14.0-18.0); Immature Granulocytes % 0.7 %; Immature Granulocytes Absolute 0.09 #; Lymphocytes # 0.7 10*3/uL (1.4-4.0); Lymphocytes % 5.3 % (21.2-54.2); Mean Corpuscular HGB Conc 30.7 GM/DL (32-36); Mean Corpuscular Volume 85.2 FL (87-102); Mean Platelet Volume 11.2 FL (9.6-12.0); Monocytes % 5.8 % (1.7-12.7); Neutrophils % 87.9 % (38.7-73.9); Platelet Count 168 T/CUMM (130-400); Red Blood Count 4.47 MC/CUMM (3.8-5.5); Red Cell Distribution Width 16.2 % (9.3-17.3); White Blood Count 12.2 T/CUMM (4-12)
[2020-12-21 04:44] LABS: Albumin 2.6 G/DL (3.4-5.0); Bilirubin,Total 1.6 MG/DL (0.20-1.00); Calcium 7.7 MG/DL (8.5-10.1); Osmolality,Calculated 274.5 MOS/KG (273-304); Potassium 4.8 MMOL/L (3.5-5.1)
[2020-12-21] MEDS: DOBUTamine 500 MG/250 ML PREMIX IV PRN ×3 (05:33→20:54)
[2020-12-21] MEDS: FUROSEMIDE 40 MG/4 ML VIAL IV SCH ×2 (07:37→15:11)
[2020-12-21] MEDS: LATANOPROST 0.005% OPH SOLN 2.5 ML BOTTLE LEFT EYE SCH ×2 (08:16→20:36)
[2020-12-21] MEDS: MINERAL OIL/PETROLATUM OPH OINT 3.5 GM TUBE BOTH EYES SCH ×3 (08:16→20:36)
[2020-12-21] MEDS: ASPIRIN CHEW 81 MG TABLET PO SCH (08:16)
[2020-12-21] MEDS: CYPROHEPTADINE 4 MG TABLET PO SCH ×3 (08:16→20:36)
[2020-12-21] MEDS: APIXABAN 5 MG TABLET PO SCH ×2 (08:17→20:34)
[2020-12-21] MEDS: allopurinoL 100 MG TABLET PO SCH (08:18)
[2020-12-21] MEDS: PANTOPRAZOLE 40 MG VIAL IV SCH (08:18)
[2020-12-21] MEDS: MULTIVITAMIN LIQUID (CENTRUM) 60 ML BOTTLE NG SCH (08:19)
[2020-12-21] MEDS: LINACLOTIDE 145 MCG CAPSULE PO SCH (08:43)
[2020-12-21] MEDS: MIDAZOLAM 100 MG in SODIUM CHLORIDE 0.9% 80 ML IV PRN (10:32)
[2020-12-21] MEDS: NOREPINEPHRINE 16 MG in SODIUM CHLORIDE 0.9% 234 ML IV PRN (11:48)
[2020-12-22] MEDS: INSULIN REGULAR 100 UNIT/ML IV SCH ×6 (03:53→23:23)
[2020-12-22 04:19] LABS: ABG Base Excess 8.3 MMOL/L (-2.5-2.5); ABG HCO3 32.1 MMOL/L (20-26); ABG Oxygen Saturation 99.5 % (95-100); ABG PCO2 43.8 MM HG (35-48); ABG PH 7.482 (7.35-7.45)
[2020-12-22 04:24] LABS: Basophils % 0.3 % (0.0-0.8); Eosinophils # 0.1 10*3/uL (0.0-0.87); Eosinophils % 0.7 % (0.00-10.9); Hematocrit 37.1 VOL% (42.0-52.0); Hemoglobin 11.6 GM/DL (14.0-18.0); Immature Granulocytes % 0.7 %; Immature Granulocytes Absolute 0.06 #; Lymphocytes % 11.3 % (21.2-54.2); Mean Corpuscular HGB Conc 31.3 GM/DL (32-36); Mean Corpuscular Volume 84.5 FL (87-102); Mean Platelet Volume 10.3 FL (9.6-12.0); Monocytes % 7.8 % (1.7-12.7); Neutrophils % 79.2 % (38.7-73.9); Platelet Count 191 T/CUMM (130-400); Red Blood Count 4.39 MC/CUMM (3.8-5.5); Red Cell Distribution Width 16.2 % (9.3-17.3); White Blood Count 8.9 T/CUMM (4-12)
[2020-12-22 04:41] LABS: Albumin 2.7 G/DL (3.4-5.0); Bilirubin,Total 1.4 MG/DL (0.20-1.00); Calcium 8.4 MG/DL (8.5-10.1); Osmolality,Calculated 278.1 MOS/KG (273-304); Potassium 4.1 MMOL/L (3.5-5.1); Total Protein 6.4 G/DL (6.4-8.2)
[2020-12-22 04:59] LABS: Calcium 8.2 MG/DL (8.5-10.1); Osmolality,Calculated 278.1 MOS/KG (273-304); Potassium 4.2 MMOL/L (3.5-5.1)
[2020-12-22] MEDS: APIXABAN 5 MG TABLET PO SCH ×2 (08:11→21:33)
[2020-12-22] MEDS: allopurinoL 100 MG TABLET PO SCH (08:11)
[2020-12-22] MEDS: ASPIRIN CHEW 81 MG TABLET PO SCH (08:11)
[2020-12-22] MEDS: CYPROHEPTADINE 4 MG TABLET PO SCH (08:11)
[2020-12-22] MEDS: PANTOPRAZOLE 40 MG VIAL IV SCH (08:11)
[2020-12-22] MEDS: LATANOPROST 0.005% OPH SOLN 2.5 ML BOTTLE LEFT EYE SCH ×2 (08:12→22:18)
[2020-12-22] MEDS: MULTIVITAMIN LIQUID (CENTRUM) 60 ML BOTTLE NG SCH (08:12)
[2020-12-22] MEDS: FUROSEMIDE 40 MG/4 ML VIAL IV SCH ×2 (08:12→16:15)
[2020-12-22] MEDS: MINERAL OIL/PETROLATUM OPH OINT 3.5 GM TUBE BOTH EYES SCH ×2 (08:13→15:39)
[2020-12-22] MEDS: LINACLOTIDE 145 MCG CAPSULE PO SCH (09:52)
[2020-12-22] MEDS: NOREPINEPHRINE 16 MG in SODIUM CHLORIDE 0.9% 234 ML IV PRN (15:39)
[2020-12-23] MEDS: INSULIN REGULAR 100 UNIT/ML IV SCH ×5 (03:27→21:36)
[2020-12-23 04:15] LABS: ABG Base Excess 7.9 MMOL/L (-2.5-2.5); ABG HCO3 31.7 MMOL/L (20-26); ABG Oxygen Saturation 99.6 % (95-100); ABG PCO2 46.8 MM HG (35-48); ABG PH 7.457 (7.35-7.45)
[2020-12-23 04:18] LABS: Basophils % 0.4 % (0.0-0.8); Eosinophils # 0.1 10*3/uL (0.0-0.87); Eosinophils % 0.9 % (0.00-10.9); Hematocrit 39.4 VOL% (42.0-52.0); Hemoglobin 12.3 GM/DL (14.0-18.0); Immature Granulocytes % 0.5 %; Immature Granulocytes Absolute 0.05 #; Lymphocytes # 1.2 10*3/uL (1.4-4.0); Lymphocytes % 12.1 % (21.2-54.2); Mean Corpuscular HGB Conc 31.2 GM/DL (32-36); Mean Corpuscular Volume 84.4 FL (87-102); Mean Platelet Volume 10.3 FL (9.6-12.0); Monocytes % 10.2 % (1.7-12.7); Neutrophils % 75.9 % (38.7-73.9); Platelet Count 212 T/CUMM (130-400); Red Blood Count 4.67 MC/CUMM (3.8-5.5); Red Cell Distribution Width 16.4 % (9.3-17.3); White Blood Count 9.9 T/CUMM (4-12)
[2020-12-23 04:35] LABS: Calcium 9.4 MG/DL (8.5-10.1); Osmolality,Calculated 284.7 MOS/KG (273-304); Potassium 3.7 MMOL/L (3.5-5.1)
[2020-12-23] MEDS: MIDAZOLAM 100 MG in SODIUM CHLORIDE 0.9% 80 ML IV PRN (06:48)
[2020-12-23] MEDS: ASPIRIN CHEW 81 MG TABLET PO SCH (08:47)
[2020-12-23] MEDS: FUROSEMIDE 40 MG/4 ML VIAL IV SCH ×2 (08:47→18:36)
[2020-12-23] MEDS: LINACLOTIDE 145 MCG CAPSULE PO SCH (08:47)
[2020-12-23] MEDS: APIXABAN 5 MG TABLET PO SCH ×2 (08:47→21:35)
[2020-12-23] MEDS: LATANOPROST 0.005% OPH SOLN 2.5 ML BOTTLE LEFT EYE SCH ×2 (08:49→21:30)
[2020-12-23] MEDS: allopurinoL 100 MG TABLET PO SCH (08:50)
[2020-12-23] MEDS: PANTOPRAZOLE 40 MG VIAL IV SCH (08:51)
[2020-12-23 12:18] LABS: ABG Base Excess 5.7 MMOL/L (-2.5-2.5); ABG HCO3 30.5 MMOL/L (20-26); ABG Oxygen Saturation 99.2 % (95-100); ABG PH 7.449 (7.35-7.45); ABG PO2 210.1 MM HG (80-95); ABG TCO2 31.9 MMOL/L (23-27)
[2020-12-23 14:55] LABS: ABG Base Excess 6.2 MMOL/L (-2.5-2.5); ABG HCO3 30.1 MMOL/L (20-26); ABG Oxygen Saturation 99.7 % (95-100); ABG PH 7.462 (7.35-7.45); ABG TCO2 26.8 MMOL/L (23-27)
[2020-12-23] MEDS: MULTIVITAMIN LIQUID (CENTRUM) 60 ML BOTTLE NG SCH (17:59)
[2020-12-24] MEDS: INSULIN REGULAR 100 UNIT/ML IV SCH ×6 (00:55→19:20)
[2020-12-24 04:09] LABS: Basophils # 0.1 10*3/uL (0.0-0.2); Basophils % 0.8 % (0.0-0.8); Eosinophils # 0.2 10*3/uL (0.0-0.87); Eosinophils % 1.6 % (0.00-10.9); Hematocrit 43.1 VOL% (42.0-52.0); Hemoglobin 13.1 GM/DL (14.0-18.0); Immature Granulocytes % 0.5 %; Immature Granulocytes Absolute 0.06 #; Lymphocytes # 1.4 10*3/uL (1.4-4.0); Lymphocytes % 11.8 % (21.2-54.2); Mean Corpuscular HGB Conc 30.4 GM/DL (32-36); Mean Corpuscular Volume 86.2 FL (87-102); Mean Platelet Volume 10.7 FL (9.6-12.0); Monocytes % 11.8 % (1.7-12.7); Neutrophils % 73.5 % (38.7-73.9); Platelet Count 228 T/CUMM (130-400); Red Cell Distribution Width 16.7 % (9.3-17.3); White Blood Count 11.7 T/CUMM (4-12)
[2020-12-24 04:13] VITALS: BP 102/57
[2020-12-24 04:18] LABS: Calcium 9.9 MG/DL (8.5-10.1); Osmolality,Calculated 287.3 MOS/KG (273-304); Potassium 3.7 MMOL/L (3.5-5.1)
[2020-12-24] MEDS: allopurinoL 100 MG TABLET PO SCH (08:56)
[2020-12-24] MEDS: LATANOPROST 0.005% OPH SOLN 2.5 ML BOTTLE LEFT EYE SCH ×2 (08:56→22:06)
[2020-12-24] MEDS: LINACLOTIDE 145 MCG CAPSULE PO SCH (08:56)
[2020-12-24] MEDS: ASPIRIN CHEW 81 MG TABLET PO SCH (08:56)
[2020-12-24] MEDS: MULTIVITAMIN LIQUID (CENTRUM) 60 ML BOTTLE NG SCH (08:56)
[2020-12-24] MEDS: APIXABAN 5 MG TABLET PO SCH ×2 (08:57→21:10)
[2020-12-24] MEDS: PANTOPRAZOLE 40 MG VIAL IV SCH (08:57)
[2020-12-24] MEDS: FUROSEMIDE 40 MG/4 ML VIAL IV SCH ×2 (08:58→16:43)
[2020-12-24] MEDS: ACETAMINOPHEN 325 MG TABLET PO PRN (15:19)
[2020-12-25] MEDS: INSULIN REGULAR 100 UNIT/ML IV SCH (02:20)
[2020-12-25 05:15] LABS: Calcium 9.4 MG/DL (8.5-10.1); Osmolality,Calculated 278.8 MOS/KG (273-304); Potassium 3.1 MMOL/L (3.5-5.1)
[2020-12-25 05:16] LABS: Basophils # 0.1 10*3/uL (0.0-0.2); Basophils % 0.8 % (0.0-0.8); Eosinophils # 0.3 10*3/uL (0.0-0.87); Eosinophils % 2.8 % (0.00-10.9); Hematocrit 39.1 VOL% (42.0-52.0); Hemoglobin 12.9 GM/DL (14.0-18.0); Immature Granulocytes % 0.7 %; Immature Granulocytes Absolute 0.06 #; Lymphocytes # 1.4 10*3/uL (1.4-4.0); Lymphocytes % 15.4 % (21.2-54.2); Mean Platelet Volume 10.6 FL (9.6-12.0); Monocytes % 10.2 % (1.7-12.7); Neutrophils % 70.1 % (38.7-73.9); Platelet Count 246 T/CUMM (130-400); Red Blood Count 4.71 MC/CUMM (3.8-5.5); Red Cell Distribution Width 16.1 % (9.3-17.3)
[2020-12-25] MEDS ORDERED: POTASSIUM CHLORIDE 20 MEQ TABLET PO ONE (08:01)
[2020-12-25] MEDS: INSULIN REGULAR 100 UNIT/ML SUBCUT SCH ×4 (08:19→22:07)
[2020-12-25] MEDS: FUROSEMIDE 40 MG/4 ML VIAL IV SCH (10:39)
[2020-12-25] MEDS: APIXABAN 5 MG TABLET PO SCH ×2 (10:40→20:30)
[2020-12-25] MEDS: carvediloL 3.125 MG TABLET PO SCH ×2 (10:40→22:07)
[2020-12-25] MEDS: ASPIRIN CHEW 81 MG TABLET PO SCH (10:40)
[2020-12-25] MEDS: MULTIVITAMIN LIQUID (CENTRUM) 60 ML BOTTLE NG SCH (10:40)
[2020-12-25] MEDS: PANTOPRAZOLE 40 MG TABLET PO SCH (10:41)
[2020-12-25] MEDS: allopurinoL 100 MG TABLET PO SCH (10:41)
[2020-12-25] MEDS: LATANOPROST 0.005% OPH SOLN 2.5 ML BOTTLE LEFT EYE SCH ×2 (10:41→20:30)
[2020-12-25] MEDS: LINACLOTIDE 145 MCG CAPSULE PO SCH (12:48)
[2020-12-25] MEDS: POTASSIUM BICARB EFFERVESCENT 20 MEQ TAB.EFF PO PRN (12:50)
[2020-12-25] MEDS: FLUTICASONE 50 MCG NASAL SPRAY 16 GM BOTTLE BOTH NARES SCH (22:11)
[2020-12-26] MEDS: ACETAMINOPHEN 325 MG TABLET PO PRN (04:58)
[2020-12-26 05:47] LABS: Basophils # 0.1 10*3/uL (0.0-0.2); Basophils % 0.9 % (0.0-0.8); Eosinophils # 0.3 10*3/uL (0.0-0.87); Eosinophils % 3.4 % (0.00-10.9); Hematocrit 36.3 VOL% (42.0-52.0); Hemoglobin 11.5 GM/DL (14.0-18.0); Immature Granulocytes % 0.6 %; Immature Granulocytes Absolute 0.05 #; Lymphocytes # 1.4 10*3/uL (1.4-4.0); Lymphocytes % 17.1 % (21.2-54.2); Mean Corpuscular HGB Conc 31.7 GM/DL (32-36); Mean Corpuscular Volume 83.3 FL (87-102); Mean Platelet Volume 10.7 FL (9.6-12.0); Platelet Count 241 T/CUMM (130-400); Red Blood Count 4.36 MC/CUMM (3.8-5.5)
[2020-12-26 06:27] LABS: Calcium 9.3 MG/DL (8.5-10.1); Osmolality,Calculated 276.2 MOS/KG (273-304); Potassium 3.1 MMOL/L (3.5-5.1)
[2020-12-26] MEDS ORDERED: POTASSIUM CHLORIDE 20 MEQ TABLET PO ONE (07:43)
[2020-12-26] MEDS: INSULIN REGULAR 100 UNIT/ML SUBCUT SCH ×4 (08:43→20:29)
[2020-12-26] MEDS: lisinopriL 2.5 MG TABLET PO SCH ×2 (09:44→20:07)
[2020-12-26] MEDS: LINACLOTIDE 145 MCG CAPSULE PO SCH (09:44)
[2020-12-26] MEDS: ASPIRIN CHEW 81 MG TABLET PO SCH (09:44)
[2020-12-26] MEDS: LATANOPROST 0.005% OPH SOLN 2.5 ML BOTTLE LEFT EYE SCH ×2 (09:44→20:07)
[2020-12-26] MEDS: MULTIVITAMIN LIQUID (CENTRUM) 60 ML BOTTLE NG SCH (09:44)
[2020-12-26] MEDS: FLUTICASONE 50 MCG NASAL SPRAY 16 GM BOTTLE BOTH NARES SCH ×2 (09:44→20:07)
[2020-12-26] MEDS: PANTOPRAZOLE 40 MG TABLET PO SCH (09:45)
[2020-12-26] MEDS: APIXABAN 5 MG TABLET PO SCH ×2 (09:45→20:07)
[2020-12-26] MEDS: allopurinoL 100 MG TABLET PO SCH (09:45)
[2020-12-26] MEDS: carvediloL 3.125 MG TABLET PO SCH ×2 (09:46→20:06)
[2020-12-27] MEDS: ACETAMINOPHEN 325 MG TABLET PO PRN (00:16)
[2020-12-27] MEDS ORDERED: SODIUM CHLORIDE 0.9% 250 ML IV ONE (01:29)
[2020-12-27 04:46] LABS: Basophils # 0.1 10*3/uL (0.0-0.2); Basophils % 1.1 % (0.0-0.8); Eosinophils # 0.3 10*3/uL (0.0-0.87); Eosinophils % 4.4 % (0.00-10.9); Hematocrit 36.5 VOL% (42.0-52.0); Hemoglobin 11.3 GM/DL (14.0-18.0); Immature Granulocytes % 0.6 %; Immature Granulocytes Absolute 0.04 #; Lymphocytes # 1.3 10*3/uL (1.4-4.0); Lymphocytes % 17.6 % (21.2-54.2); Mean Corpuscular Volume 83.9 FL (87-102); Mean Platelet Volume 10.6 FL (9.6-12.0); Monocytes % 9.2 % (1.7-12.7); Neutrophils % 67.1 % (38.7-73.9); Platelet Count 250 T/CUMM (130-400); Red Blood Count 4.35 MC/CUMM (3.8-5.5); Red Cell Distribution Width 16.1 % (9.3-17.3); White Blood Count 7.1 T/CUMM (4-12)
[2020-12-27 05:07] LABS: Albumin 2.6 G/DL (3.4-5.0); Osmolality,Calculated 276.2 MOS/KG (273-304); Potassium 3.4 MMOL/L (3.5-5.1); Total Protein 6.6 G/DL (6.4-8.2)
[2020-12-27] MEDS: POTASSIUM BICARB EFFERVESCENT 20 MEQ TAB.EFF PO PRN ×3 (05:59→10:25)
[2020-12-27] MEDS ORDERED: POTASSIUM CHLORIDE 20 MEQ TABLET PO ONE (07:18)
[2020-12-27] MEDS: carvediloL 3.125 MG TABLET PO SCH (08:10)
[2020-12-27] MEDS: ASPIRIN CHEW 81 MG TABLET PO SCH (08:10)
[2020-12-27] MEDS: allopurinoL 100 MG TABLET PO SCH (08:11)
[2020-12-27] MEDS: FUROSEMIDE 80 MG TABLET PO SCH ×2 (08:11→15:09)
[2020-12-27] MEDS: APIXABAN 5 MG TABLET PO SCH (08:11)
[2020-12-27] MEDS: LINACLOTIDE 145 MCG CAPSULE PO SCH (08:12)
[2020-12-27] MEDS: PANTOPRAZOLE 40 MG TABLET PO SCH (08:12)
[2020-12-27] MEDS: MULTIVITAMIN LIQUID (CENTRUM) 60 ML BOTTLE NG SCH (08:13)
[2020-12-27] MEDS: FLUTICASONE 50 MCG NASAL SPRAY 16 GM BOTTLE BOTH NARES SCH (08:16)
[2020-12-27] MEDS: LATANOPROST 0.005% OPH SOLN 2.5 ML BOTTLE LEFT EYE SCH (08:16)
[2020-12-27] MEDS: INSULIN REGULAR 100 UNIT/ML SUBCUT SCH ×2 (08:18→11:42)
[2020-12-27] MEDS: lisinopriL 2.5 MG TABLET PO SCH (08:19)
== END 2020-12-27 15:55 | disposition home or self-care (01) | DRG 870 ==
LOC: N.ED 17:08 → N.EDINP 17:08 → SUATTDRO 20:13 → N.ICU 22:45
PROVIDERS: ADMIT Internal Medicine; ATTEND Internal Medicine

== ENCOUNTER 2021-07-20 00:33 | Inpatient (IN) ==
[2021-07-20 01:08] LABS: Basophils # 0.1 10*3/uL (0.0-0.2); Eosinophils # 0.1 10*3/uL (0.0-0.87); Eosinophils % 1.1 % (0.00-10.9); Hemoglobin 10.5 GM/DL (14.0-18.0); Immature Granulocytes % 0.3 %; Immature Granulocytes Absolute 0.03 #; Lymphocytes # 1.8 10*3/uL (1.4-4.0); Lymphocytes % 21.1 % (21.2-54.2); Mean Corpuscular HGB Conc 30.9 GM/DL (32-36); Mean Corpuscular Volume 88.3 FL (87-102); Mean Platelet Volume 10.3 FL (9.6-12.0); Monocytes # 0.6 10*3/uL (0.11-0.8); Monocytes % 6.9 % (1.7-12.7); Neutrophils % 69.6 % (38.7-73.9); Platelet Count 404 T/CUMM (130-400); Red Blood Count 3.85 MC/CUMM (3.8-5.5); Red Cell Distribution Width 16.1 % (9.3-17.3); White Blood Count 8.7 T/CUMM (4-12)
[2021-07-20] MEDS ORDERED: SODIUM CHLORIDE 0.9% 500 ML IV STA (01:30)
[2021-07-20 01:35] LABS: Bilirubin,Total 0.4 MG/DL (0.20-1.00); Osmolality,Calculated 288.5 MOS/KG (273-304); Potassium 4.7 MMOL/L (3.5-5.1); Total Protein 6.9 G/DL (6.4-8.2)
[2021-07-20] MEDS ORDERED: ENOXAPARIN 30 MG/0.3 ML SYRINGE SUBCUT STA (01:38)
[2021-07-20] MEDS ORDERED: ENOXAPARIN 80 MG/0.8 ML SYRINGE SUBCUT STA (01:41)
[2021-07-20] MEDS ORDERED: DEXTROSE 10% 250 ML BAG IV PRN (02:56)
[2021-07-20] MEDS ORDERED: ACETAMINOPHEN 325 MG TABLET PO PRN (02:56)
[2021-07-20] MEDS ORDERED: GLUCAGON 1 MG VIAL IM PRN (02:56)
[2021-07-20] MEDS: INSULIN LISPRO 100 UNIT/ML SUBCUT SCH ×4 (07:20→20:27)
[2021-07-20] MEDS ORDERED: LEVOFLOXACIN INJ 500 MG/100 ML PREMIX IV ONE (09:31)
[2021-07-20] MEDS ORDERED: FLUTICASONE 50 MCG NASAL SPRAY 16 GM BOTTLE BOTH NARES PRN (09:34)
[2021-07-20] MEDS ORDERED: SENNA 8.6 MG TABLET PO PRN (09:34)
[2021-07-20] MEDS ORDERED: LORATADINE 10 MG TABLET PO PRN (09:34)
[2021-07-20] MEDS: LEVALBUTEROL 1.25 MG/3 ML NEB RESP TX SCH ×3 (10:01→20:00)
[2021-07-20] MEDS: APIXABAN 5 MG TABLET PO SCH ×2 (10:41→20:25)
[2021-07-20] MEDS: PANTOPRAZOLE 40 MG TABLET PO SCH (10:42)
[2021-07-20] MEDS: ONDANSETRON 4 MG/2 ML VIAL IV PRN (13:03)
[2021-07-20] MEDS: carvediloL 3.125 MG TABLET PO SCH (20:25)
[2021-07-20] MEDS: LATANOPROST 0.005% OPH SOLN 2.5 ML BOTTLE LEFT EYE SCH (20:26)
[2021-07-20] MEDS: BRIMONIDINE 0.2% OPH SOLN 5 ML BOTTLE BOTH EYES SCH (20:26)
[2021-07-21] MEDS: LEVALBUTEROL 1.25 MG/3 ML NEB RESP TX SCH ×4 (01:20→19:15)
[2021-07-21 05:41] LABS: Basophils # 0.1 10*3/uL (0.0-0.2); Basophils % 1.4 % (0.0-0.8); Eosinophils # 0.1 10*3/uL (0.0-0.87); Eosinophils % 1.3 % (0.00-10.9); Hematocrit 32.8 VOL% (42.0-52.0); Immature Granulocytes % 0.4 %; Immature Granulocytes Absolute 0.03 #; Lymphocytes # 1.2 10*3/uL (1.4-4.0); Lymphocytes % 16.8 % (21.2-54.2); Mean Corpuscular HGB Conc 30.5 GM/DL (32-36); Mean Corpuscular Volume 89.4 FL (87-102); Mean Platelet Volume 10.9 FL (9.6-12.0); Monocytes # 0.8 10*3/uL (0.11-0.8); Monocytes % 11.8 % (1.7-12.7); Neutrophils % 68.3 % (38.7-73.9); Platelet Count 341 T/CUMM (130-400); Red Blood Count 3.67 MC/CUMM (3.8-5.5); Red Cell Distribution Width 16.1 % (9.3-17.3); White Blood Count 7.1 T/CUMM (4-12)
[2021-07-21 06:02] LABS: Albumin 2.7 G/DL (3.4-5.0); Bilirubin,Total 0.6 MG/DL (0.20-1.00); Calcium 8.7 MG/DL (8.5-10.1); Osmolality,Calculated 281.8 MOS/KG (273-304); Potassium 5.2 MMOL/L (3.5-5.1); Total Protein 6.4 G/DL (6.4-8.2)
[2021-07-21] MEDS: INSULIN LISPRO 100 UNIT/ML SUBCUT SCH ×4 (07:56→21:01)
[2021-07-21] MEDS: PANTOPRAZOLE 40 MG TABLET PO SCH (10:10)
[2021-07-21] MEDS: APIXABAN 5 MG TABLET PO SCH ×2 (10:10→21:00)
[2021-07-21] MEDS: LINACLOTIDE 145 MCG CAPSULE PO SCH (10:11)
[2021-07-21] MEDS: ASPIRIN EC 81 MG TABLET PO SCH (10:11)
[2021-07-21] MEDS: carvediloL 3.125 MG TABLET PO SCH ×2 (10:11→21:01)
[2021-07-21] MEDS: LEVOFLOXACIN INJ 250 MG/50 ML PREMIX IV SCH (10:18)
[2021-07-21] MEDS ORDERED: FUROSEMIDE 80 MG TABLET PO SCH (11:00)
[2021-07-21] MEDS: ONDANSETRON 4 MG/2 ML VIAL IV PRN (11:08)
[2021-07-21] MEDS: ROSUVASTATIN 20 MG TABLET PO SCH (21:00)
[2021-07-21] MEDS: BRIMONIDINE 0.2% OPH SOLN 5 ML BOTTLE BOTH EYES SCH (21:01)
[2021-07-21] MEDS: LATANOPROST 0.005% OPH SOLN 2.5 ML BOTTLE LEFT EYE SCH (21:01)
[2021-07-22] MEDS: LEVALBUTEROL 1.25 MG/3 ML NEB RESP TX SCH ×4 (00:09→19:27)
[2021-07-22] MEDS: ONDANSETRON 4 MG/2 ML VIAL IV PRN ×3 (02:03→15:02)
[2021-07-22 04:52] LABS: Basophils # 0.1 10*3/uL (0.0-0.2); Basophils % 1.6 % (0.0-0.8); Eosinophils # 0.1 10*3/uL (0.0-0.87); Eosinophils % 1.5 % (0.00-10.9); Hematocrit 32.1 VOL% (42.0-52.0); Immature Granulocytes % 0.5 %; Immature Granulocytes Absolute 0.04 #; Lymphocytes # 1.4 10*3/uL (1.4-4.0); Lymphocytes % 16.6 % (21.2-54.2); Mean Corpuscular HGB Conc 31.2 GM/DL (32-36); Mean Platelet Volume 10.8 FL (9.6-12.0); Monocytes # 0.9 10*3/uL (0.11-0.8); Monocytes % 10.4 % (1.7-12.7); Neutrophils % 69.4 % (38.7-73.9); Platelet Count 327 T/CUMM (130-400); Red Blood Count 3.69 MC/CUMM (3.8-5.5); Red Cell Distribution Width 15.9 % (9.3-17.3); White Blood Count 8.3 T/CUMM (4-12)
[2021-07-22 05:10] LABS: Calcium 8.7 MG/DL (8.5-10.1); Osmolality,Calculated 280.4 MOS/KG (273-304); Potassium 4.6 MMOL/L (3.5-5.1)
[2021-07-22] MEDS: INSULIN LISPRO 100 UNIT/ML SUBCUT SCH ×4 (07:58→21:26)
[2021-07-22] MEDS: allopurinoL 100 MG TABLET PO SCH (08:59)
[2021-07-22] MEDS: PANTOPRAZOLE 40 MG TABLET PO SCH (08:59)
[2021-07-22] MEDS: APIXABAN 5 MG TABLET PO SCH ×2 (08:59→21:25)
[2021-07-22] MEDS: ASPIRIN EC 81 MG TABLET PO SCH (08:59)
[2021-07-22] MEDS: carvediloL 3.125 MG TABLET PO SCH ×2 (08:59→21:25)
[2021-07-22] MEDS: FUROSEMIDE 40 MG/4 ML VIAL IV SCH ×2 (09:03→15:37)
[2021-07-22] MEDS: LINACLOTIDE 145 MCG CAPSULE PO SCH (09:06)
[2021-07-22] MEDS: LEVOFLOXACIN INJ 250 MG/50 ML PREMIX IV SCH (10:15)
[2021-07-22] MEDS ORDERED: PROMETHAZINE 25 MG TABLET PO ONE (15:51)
[2021-07-22] MEDS: BRIMONIDINE 0.2% OPH SOLN 5 ML BOTTLE BOTH EYES SCH (21:25)
[2021-07-22] MEDS: ROSUVASTATIN 20 MG TABLET PO SCH (21:25)
[2021-07-22] MEDS: LATANOPROST 0.005% OPH SOLN 2.5 ML BOTTLE LEFT EYE SCH (21:26)
[2021-07-23] MEDS: LEVALBUTEROL 1.25 MG/3 ML NEB RESP TX SCH ×3 (00:17→13:21)
[2021-07-23] MEDS: INSULIN LISPRO 100 UNIT/ML SUBCUT SCH ×2 (08:21→13:59)
[2021-07-23] MEDS: ASPIRIN EC 81 MG TABLET PO SCH (09:20)
[2021-07-23] MEDS: allopurinoL 100 MG TABLET PO SCH (09:20)
[2021-07-23] MEDS: APIXABAN 5 MG TABLET PO SCH (09:20)
[2021-07-23] MEDS: carvediloL 3.125 MG TABLET PO SCH (09:20)
[2021-07-23] MEDS: FUROSEMIDE 40 MG/4 ML VIAL IV SCH (09:21)
[2021-07-23] MEDS: LINACLOTIDE 145 MCG CAPSULE PO SCH (09:21)
[2021-07-23] MEDS: PANTOPRAZOLE 40 MG TABLET PO SCH (09:21)
[2021-07-23] MEDS: LEVOFLOXACIN INJ 250 MG/50 ML PREMIX IV SCH (09:27)
[2021-07-23 14:09] VITALS: BP 108/74
== END 2021-07-23 11:54 | disposition home health service (06) | DRG 194 ==
LOC: N.EDINP 00:33 → N.ED 00:33 → N.EDINP 13:50 → N.TELES 14:07 → SUATTDRO 14:51
PROVIDERS: ADMIT Family Medicine; ATTEND Internal Medicine

== ENCOUNTER 2021-07-24 15:22 | Inpatient (IN) ==
[2021-07-24 16:04] LABS: Basophils % 0.3 % (0.0-0.8); Eosinophils % 0.2 % (0.00-10.9); Hematocrit 33.7 VOL% (42.0-52.0); Hemoglobin 10.6 GM/DL (14.0-18.0); Immature Granulocytes % 0.5 %; Immature Granulocytes Absolute 0.03 #; Lymphocytes # 0.6 10*3/uL (1.4-4.0); Mean Corpuscular HGB Conc 31.5 GM/DL (32-36); Mean Corpuscular Volume 85.8 FL (87-102); Monocytes # 0.3 10*3/uL (0.11-0.8); Monocytes % 5.2 % (1.7-12.7); Neutrophils % 83.8 % (38.7-73.9); Platelet Count 334 T/CUMM (130-400); Red Blood Count 3.93 MC/CUMM (3.8-5.5); Red Cell Distribution Width 16.1 % (9.3-17.3); White Blood Count 6.2 T/CUMM (4-12)
[2021-07-24 16:30] LABS: Bilirubin,Total 0.8 MG/DL (0.20-1.00); Calcium 9.3 MG/DL (8.5-10.1); Osmolality,Calculated 280.4 MOS/KG (273-304); Potassium 5.1 MMOL/L (3.5-5.1); Total Protein 6.5 G/DL (6.4-8.2)
[2021-07-24] MEDS ORDERED: SODIUM CHLORIDE 0.9% 500 ML IV STA (17:43)
[2021-07-24] MEDS ORDERED: GLUCAGON 1 MG VIAL IM PRN ×2 (18:48)
[2021-07-24] MEDS ORDERED: DEXTROSE 50% 25 GM/50 ML VIAL IV PRN (18:48)
[2021-07-24] MEDS ORDERED: DEXTROSE 10% 250 ML BAG IV PRN (19:02)
[2021-07-24] MEDS: ALBUTEROL/IPRATROPIUM 3 ML NEB RESP TX SCH ×2 (19:18→23:24)
[2021-07-24] MEDS ORDERED: SODIUM CHLORIDE 0.45% 1,000 ML IV SCH (20:00)
[2021-07-24] MEDS: FUROSEMIDE 40 MG/4 ML VIAL IV SCH (20:23)
[2021-07-24] MEDS ORDERED: INSULIN LISPRO 100 UNIT/ML SUBCUT SCH (21:00)
[2021-07-24] MEDS: LATANOPROST 0.005% OPH SOLN 2.5 ML BOTTLE LEFT EYE SCH (22:53)
[2021-07-24] MEDS: CEFUROXIME 250 MG TABLET PO SCH (22:55)
[2021-07-24] MEDS: ROSUVASTATIN 20 MG TABLET PO SCH (22:55)
[2021-07-24] MEDS: MAGNESIUM OXIDE 400 MG TABLET PO SCH (22:55)
[2021-07-24] MEDS: BRIMONIDINE 0.2% OPH SOLN 5 ML BOTTLE BOTH EYES SCH (22:55)
[2021-07-24] MEDS: DOXYCYCLINE HYCLATE 100 MG CAPSULE PO SCH (22:55)
[2021-07-24] MEDS: APIXABAN 5 MG TABLET PO SCH (22:55)
[2021-07-24] MEDS: carvediloL 3.125 MG TABLET PO SCH (22:56)
[2021-07-25] MEDS: INSULIN LISPRO 100 UNIT/ML SUBCUT SCH ×5 (00:08→22:24)
[2021-07-25 00:51] LABS: Basophils % 0.2 % (0.0-0.8); Hematocrit 34.8 VOL% (42.0-52.0); Immature Granulocytes % 0.7 %; Immature Granulocytes Absolute 0.03 #; Lymphocytes # 0.8 10*3/uL (1.4-4.0); Lymphocytes % 17.7 % (21.2-54.2); Mean Corpuscular HGB Conc 31.6 GM/DL (32-36); Mean Corpuscular Volume 86.4 FL (87-102); Mean Platelet Volume 10.7 FL (9.6-12.0); Monocytes # 0.4 10*3/uL (0.11-0.8); Neutrophils % 73.4 % (38.7-73.9); Platelet Count 272 T/CUMM (130-400); Red Blood Count 4.03 MC/CUMM (3.8-5.5); Red Cell Distribution Width 16.1 % (9.3-17.3); White Blood Count 4.5 T/CUMM (4-12)
[2021-07-25 01:11] LABS: Calcium 8.8 MG/DL (8.5-10.1); Osmolality,Calculated 285.1 MOS/KG (273-304); Potassium 4.5 MMOL/L (3.5-5.1)
[2021-07-25] MEDS: ALBUTEROL/IPRATROPIUM 3 ML NEB RESP TX SCH ×5 (02:00→19:25)
[2021-07-25] MEDS: FUROSEMIDE 40 MG/4 ML VIAL IV SCH ×3 (04:30→22:23)
[2021-07-25] MEDS: LINACLOTIDE 145 MCG CAPSULE PO SCH (08:40)
[2021-07-25] MEDS: ASPIRIN EC 81 MG TABLET PO SCH (08:41)
[2021-07-25] MEDS: CEFUROXIME 250 MG TABLET PO SCH ×2 (08:41→22:22)
[2021-07-25] MEDS: carvediloL 3.125 MG TABLET PO SCH ×2 (08:41→19:05)
[2021-07-25] MEDS: APIXABAN 5 MG TABLET PO SCH ×2 (08:41→22:22)
[2021-07-25] MEDS: MAGNESIUM OXIDE 400 MG TABLET PO SCH ×2 (08:42→22:22)
[2021-07-25] MEDS: allopurinoL 100 MG TABLET PO SCH (08:42)
[2021-07-25] MEDS: DOXYCYCLINE HYCLATE 100 MG CAPSULE PO SCH ×2 (08:42→22:22)
[2021-07-25] MEDS: OMEGA 3 ACID ETHYL ESTERS 1 GM CAPSULE PO SCH (08:42)
[2021-07-25] MEDS: PANTOPRAZOLE 40 MG TABLET PO SCH (08:45)
[2021-07-25] MEDS ORDERED: SODIUM CHLORIDE 0.9% 250 ML IV ONE (17:39)
[2021-07-25] MEDS: BRIMONIDINE 0.2% OPH SOLN 5 ML BOTTLE BOTH EYES SCH (22:22)
[2021-07-25] MEDS: ROSUVASTATIN 20 MG TABLET PO SCH (22:22)
[2021-07-25] MEDS: LATANOPROST 0.005% OPH SOLN 2.5 ML BOTTLE LEFT EYE SCH (22:23)
[2021-07-26] MEDS: ALBUTEROL/IPRATROPIUM 3 ML NEB RESP TX SCH ×8 (00:10→23:47)
[2021-07-26 04:57] LABS: Hematocrit 34.2 VOL% (42.0-52.0); Hemoglobin 10.7 GM/DL (14.0-18.0); Immature Granulocytes % 0.9 %; Immature Granulocytes Absolute 0.08 #; Lymphocytes # 0.9 10*3/uL (1.4-4.0); Mean Corpuscular HGB Conc 31.3 GM/DL (32-36); Mean Corpuscular Volume 85.9 FL (87-102); Mean Platelet Volume 11.7 FL (9.6-12.0); Monocytes % 11.2 % (1.7-12.7); NRBC # 0.03 10*3/uL; Neutrophils % 77.9 % (38.7-73.9); Platelet Count 262 T/CUMM (130-400); Red Blood Count 3.98 MC/CUMM (3.8-5.5)
[2021-07-26 05:12] LABS: Calcium 8.5 MG/DL (8.5-10.1); Osmolality,Calculated 281.1 MOS/KG (273-304); Potassium 4.2 MMOL/L (3.5-5.1)
[2021-07-26] MEDS: FUROSEMIDE 40 MG/4 ML VIAL IV SCH ×3 (05:30→15:47)
[2021-07-26] MEDS: INSULIN LISPRO 100 UNIT/ML SUBCUT SCH ×4 (08:29→20:42)
[2021-07-26] MEDS: LINACLOTIDE 145 MCG CAPSULE PO SCH (08:30)
[2021-07-26] MEDS: DOXYCYCLINE HYCLATE 100 MG CAPSULE PO SCH ×2 (08:30→20:43)
[2021-07-26] MEDS: allopurinoL 100 MG TABLET PO SCH (08:31)
[2021-07-26] MEDS: APIXABAN 5 MG TABLET PO SCH ×2 (08:31→20:43)
[2021-07-26] MEDS: ASPIRIN EC 81 MG TABLET PO SCH (08:31)
[2021-07-26] MEDS: PANTOPRAZOLE 40 MG TABLET PO SCH (08:31)
[2021-07-26] MEDS: OMEGA 3 ACID ETHYL ESTERS 1 GM CAPSULE PO SCH (08:31)
[2021-07-26] MEDS: CEFUROXIME 250 MG TABLET PO SCH ×2 (08:31→20:43)
[2021-07-26] MEDS: MAGNESIUM OXIDE 400 MG TABLET PO SCH ×2 (08:31→20:43)
[2021-07-26] MEDS: DOBUTamine 500 MG/250 ML PREMIX IV SCH (15:39)
[2021-07-26] MEDS: BRIMONIDINE 0.2% OPH SOLN 5 ML BOTTLE BOTH EYES SCH (20:42)
[2021-07-26] MEDS: LATANOPROST 0.005% OPH SOLN 2.5 ML BOTTLE LEFT EYE SCH (20:43)
[2021-07-26] MEDS: ROSUVASTATIN 20 MG TABLET PO SCH (20:43)
[2021-07-27] MEDS: ALBUTEROL/IPRATROPIUM 3 ML NEB RESP TX SCH ×5 (04:07→19:48)
[2021-07-27 06:18] LABS: Hematocrit 28.3 VOL% (42.0-52.0); Immature Granulocytes % 0.9 %; Immature Granulocytes Absolute 0.06 #; Lymphocytes # 0.8 10*3/uL (1.4-4.0); Lymphocytes % 11.3 % (21.2-54.2); Mean Corpuscular HGB Conc 31.8 GM/DL (32-36); Mean Corpuscular Volume 84.2 FL (87-102); Mean Platelet Volume 11.4 FL (9.6-12.0); Monocytes # 0.7 10*3/uL (0.11-0.8); Monocytes % 10.3 % (1.7-12.7); Neutrophils % 77.5 % (38.7-73.9); Platelet Count 230 T/CUMM (130-400); Red Blood Count 3.36 MC/CUMM (3.8-5.5); Red Cell Distribution Width 15.9 % (9.3-17.3)
[2021-07-27 06:36] LABS: Calcium 8.5 MG/DL (8.5-10.1); Osmolality,Calculated 280.4 MOS/KG (273-304); Potassium 4.1 MMOL/L (3.5-5.1)
[2021-07-27] MEDS: INSULIN LISPRO 100 UNIT/ML SUBCUT SCH ×4 (08:10→21:58)
[2021-07-27] MEDS: LINACLOTIDE 145 MCG CAPSULE PO SCH (08:33)
[2021-07-27] MEDS: FUROSEMIDE 40 MG/4 ML VIAL IV SCH ×2 (08:33→16:25)
[2021-07-27] MEDS: allopurinoL 100 MG TABLET PO SCH (08:34)
[2021-07-27] MEDS: MAGNESIUM OXIDE 400 MG TABLET PO SCH ×2 (08:34→21:56)
[2021-07-27] MEDS: OMEGA 3 ACID ETHYL ESTERS 1 GM CAPSULE PO SCH (08:34)
[2021-07-27] MEDS: CEFUROXIME 250 MG TABLET PO SCH (08:34)
[2021-07-27] MEDS: ASPIRIN EC 81 MG TABLET PO SCH (08:34)
[2021-07-27] MEDS: APIXABAN 5 MG TABLET PO SCH ×2 (08:34→21:55)
[2021-07-27] MEDS: DOXYCYCLINE HYCLATE 100 MG CAPSULE PO SCH (08:34)
[2021-07-27] MEDS: PANTOPRAZOLE 40 MG TABLET PO SCH (08:34)
[2021-07-27] MEDS: SENNA 8.6 MG TABLET PO PRN (08:38)
[2021-07-27] MEDS: DOBUTamine 500 MG/250 ML PREMIX IV SCH (09:47)
[2021-07-27] MEDS ORDERED: BISACODYL 5 MG TABLET PO ONE (15:39)
[2021-07-27] MEDS: LATANOPROST 0.005% OPH SOLN 2.5 ML BOTTLE LEFT EYE SCH (21:00)
[2021-07-27] MEDS: ROSUVASTATIN 20 MG TABLET PO SCH (21:55)
[2021-07-27] MEDS: BRIMONIDINE 0.2% OPH SOLN 5 ML BOTTLE BOTH EYES SCH (21:55)
[2021-07-28] MEDS: ALBUTEROL/IPRATROPIUM 3 ML NEB RESP TX SCH ×7 (00:22→23:00)
[2021-07-28] MEDS: DOBUTamine 500 MG/250 ML PREMIX IV SCH (02:34)
[2021-07-28 05:03] LABS: Eosinophils # 0.1 10*3/uL (0.0-0.87); Hematocrit 30.7 VOL% (42.0-52.0); Hemoglobin 9.5 GM/DL (14.0-18.0); Immature Granulocytes % 0.5 %; Immature Granulocytes Absolute 0.04 #; Lymphocytes # 1.1 10*3/uL (1.4-4.0); Lymphocytes % 15.1 % (21.2-54.2); Mean Corpuscular HGB Conc 30.9 GM/DL (32-36); Mean Corpuscular Volume 86.5 FL (87-102); Monocytes % 13.2 % (1.7-12.7); Neutrophils % 70.2 % (38.7-73.9); Platelet Count 213 T/CUMM (130-400); Red Blood Count 3.55 MC/CUMM (3.8-5.5); Red Cell Distribution Width 15.9 % (9.3-17.3); White Blood Count 7.4 T/CUMM (4-12)
[2021-07-28 05:19] LABS: Calcium 8.7 MG/DL (8.5-10.1); Osmolality,Calculated 277.4 MOS/KG (273-304); Potassium 3.7 MMOL/L (3.5-5.1)
[2021-07-28] MEDS: DAPAGLIFLOZIN 10 MG TABLET PO SCH (09:45)
[2021-07-28] MEDS: LINACLOTIDE 145 MCG CAPSULE PO SCH (09:45)
[2021-07-28] MEDS: APIXABAN 5 MG TABLET PO SCH ×2 (09:45→20:49)
[2021-07-28] MEDS: OMEGA 3 ACID ETHYL ESTERS 1 GM CAPSULE PO SCH (09:45)
[2021-07-28] MEDS: allopurinoL 100 MG TABLET PO SCH (09:45)
[2021-07-28] MEDS: FUROSEMIDE 40 MG/4 ML VIAL IV SCH ×2 (09:46→17:23)
[2021-07-28] MEDS: ASPIRIN EC 81 MG TABLET PO SCH (09:46)
[2021-07-28] MEDS: PANTOPRAZOLE 40 MG TABLET PO SCH (09:46)
[2021-07-28] MEDS: MAGNESIUM OXIDE 400 MG TABLET PO SCH ×2 (09:46→20:50)
[2021-07-28] MEDS: INSULIN LISPRO 100 UNIT/ML SUBCUT SCH ×4 (10:19→20:56)
[2021-07-28] MEDS: ROSUVASTATIN 20 MG TABLET PO SCH (20:49)
[2021-07-28] MEDS: LATANOPROST 0.005% OPH SOLN 2.5 ML BOTTLE LEFT EYE SCH (20:51)
[2021-07-28] MEDS: BRIMONIDINE 0.2% OPH SOLN 5 ML BOTTLE BOTH EYES SCH (20:51)
[2021-07-29] MEDS: DOBUTamine 500 MG/250 ML PREMIX IV SCH ×2 (00:18→08:25)
[2021-07-29] MEDS: ALBUTEROL/IPRATROPIUM 3 ML NEB RESP TX SCH ×5 (03:10→19:15)
[2021-07-29 05:02] LABS: Basophils % 0.2 % (0.0-0.8); Eosinophils # 0.3 10*3/uL (0.0-0.87); Eosinophils % 4.4 % (0.00-10.9); Hematocrit 32.8 VOL% (42.0-52.0); Hemoglobin 10.2 GM/DL (14.0-18.0); Immature Granulocytes % 0.3 %; Immature Granulocytes Absolute 0.02 #; Lymphocytes # 1.1 10*3/uL (1.4-4.0); Lymphocytes % 16.5 % (21.2-54.2); Mean Corpuscular HGB Conc 31.1 GM/DL (32-36); Mean Corpuscular Volume 87.2 FL (87-102); Mean Platelet Volume 11.2 FL (9.6-12.0); Monocytes # 0.7 10*3/uL (0.11-0.8); Monocytes % 11.2 % (1.7-12.7); Neutrophils % 67.4 % (38.7-73.9); Platelet Count 238 T/CUMM (130-400); Red Blood Count 3.76 MC/CUMM (3.8-5.5); White Blood Count 6.4 T/CUMM (4-12)
[2021-07-29 05:20] LABS: Calcium 8.6 MG/DL (8.5-10.1); Osmolality,Calculated 274.4 MOS/KG (273-304); Potassium 3.8 MMOL/L (3.5-5.1)
[2021-07-29] MEDS: INSULIN LISPRO 100 UNIT/ML SUBCUT SCH ×3 (09:18→17:18)
[2021-07-29] MEDS: DAPAGLIFLOZIN 10 MG TABLET PO SCH (10:29)
[2021-07-29] MEDS: OMEGA 3 ACID ETHYL ESTERS 1 GM CAPSULE PO SCH (10:29)
[2021-07-29] MEDS: APIXABAN 5 MG TABLET PO SCH ×2 (10:29→20:53)
[2021-07-29] MEDS: ASPIRIN EC 81 MG TABLET PO SCH (10:29)
[2021-07-29] MEDS: MAGNESIUM OXIDE 400 MG TABLET PO SCH ×2 (10:29→20:54)
[2021-07-29] MEDS: PANTOPRAZOLE 40 MG TABLET PO SCH (10:29)
[2021-07-29] MEDS: LINACLOTIDE 145 MCG CAPSULE PO SCH (10:30)
[2021-07-29] MEDS: FUROSEMIDE 40 MG/4 ML VIAL IV SCH ×2 (10:30→17:11)
[2021-07-29] MEDS: allopurinoL 100 MG TABLET PO SCH (10:30)
[2021-07-29] MEDS: BRIMONIDINE 0.2% OPH SOLN 5 ML BOTTLE BOTH EYES SCH (20:53)
[2021-07-29] MEDS: ROSUVASTATIN 20 MG TABLET PO SCH (20:53)
[2021-07-29] MEDS: carvediloL 3.125 MG TABLET PO SCH (20:53)
[2021-07-29] MEDS: LATANOPROST 0.005% OPH SOLN 2.5 ML BOTTLE LEFT EYE SCH (20:54)
[2021-07-30] MEDS: ALBUTEROL/IPRATROPIUM 3 ML NEB RESP TX SCH ×6 (00:09→15:09)
[2021-07-30] MEDS: INSULIN LISPRO 100 UNIT/ML SUBCUT SCH ×4 (00:21→16:35)
[2021-07-30 05:43] LABS: Basophils % 0.6 % (0.0-0.8); Eosinophils # 0.4 10*3/uL (0.0-0.87); Hematocrit 35.1 VOL% (42.0-52.0); Immature Granulocytes % 0.4 %; Immature Granulocytes Absolute 0.03 #; Lymphocytes # 1.1 10*3/uL (1.4-4.0); Lymphocytes % 16.5 % (21.2-54.2); Mean Corpuscular HGB Conc 31.3 GM/DL (32-36); Mean Corpuscular Volume 86.7 FL (87-102); Monocytes % 14.6 % (1.7-12.7); Neutrophils % 61.9 % (38.7-73.9); Platelet Count 236 T/CUMM (130-400); Red Blood Count 4.05 MC/CUMM (3.8-5.5); Red Cell Distribution Width 16.1 % (9.3-17.3); White Blood Count 6.9 T/CUMM (4-12)
[2021-07-30 06:09] LABS: Osmolality,Calculated 272.4 MOS/KG (273-304)
[2021-07-30] MEDS: OMEGA 3 ACID ETHYL ESTERS 1 GM CAPSULE PO SCH (09:16)
[2021-07-30] MEDS: carvediloL 3.125 MG TABLET PO SCH (09:16)
[2021-07-30] MEDS: DAPAGLIFLOZIN 10 MG TABLET PO SCH (09:16)
[2021-07-30] MEDS: allopurinoL 100 MG TABLET PO SCH (09:16)
[2021-07-30] MEDS: APIXABAN 5 MG TABLET PO SCH (09:16)
[2021-07-30] MEDS: ASPIRIN EC 81 MG TABLET PO SCH (09:16)
[2021-07-30] MEDS: LINACLOTIDE 145 MCG CAPSULE PO SCH (09:17)
[2021-07-30] MEDS: MAGNESIUM OXIDE 400 MG TABLET PO SCH (09:17)
[2021-07-30] MEDS: FUROSEMIDE 40 MG/4 ML VIAL IV SCH ×2 (09:21→16:35)
[2021-07-30] MEDS: PANTOPRAZOLE 40 MG TABLET PO SCH (09:21)
[2021-07-30] MEDS: SENNA 8.6 MG TABLET PO PRN (09:21)
[2021-07-30] MEDS ORDERED: MAGNESIUM HYDROXIDE SUSP 30 ML UDCUP PO PRN (12:00)
[2021-07-30 12:45] VITALS: BP 99/49
== END 2021-07-30 16:20 | disposition swing bed (61) | DRG 291 ==
LOC: N.ED 15:22 → SUATTDRO 18:48 → N.EDINP 18:48 → N.TELES 20:43
PROVIDERS: ADMIT Internal Medicine; ATTEND Internal Medicine Geriatric Medicine

== ENCOUNTER 2021-08-17 19:33 | Inpatient (IN) ==
[2021-08-17 20:13] LABS: Basophils % 0.3 % (0.0-0.8); Eosinophils # 0.1 10*3/uL (0.0-0.87); Eosinophils % 2.1 % (0.00-10.9); Hematocrit 40.9 VOL% (42.0-52.0); Immature Granulocytes % 0.6 %; Immature Granulocytes Absolute 0.04 #; Lymphocytes # 1.3 10*3/uL (1.4-4.0); Lymphocytes % 21.4 % (21.2-54.2); Mean Corpuscular HGB Conc 31.8 GM/DL (32-36); Mean Platelet Volume 12.1 FL (9.6-12.0); Monocytes # 0.7 10*3/uL (0.11-0.8); Monocytes % 11.9 % (1.7-12.7); Neutrophils % 63.7 % (38.7-73.9); Platelet Count 202 T/CUMM (130-400); Red Blood Count 4.81 MC/CUMM (3.8-5.5); White Blood Count 6.2 T/CUMM (4-12)
[2021-08-17] MEDS ORDERED: FUROSEMIDE 40 MG/4 ML VIAL IV STA (20:31)
[2021-08-17] MEDS ORDERED: KETOROLAC 30 MG/1 ML VIAL IV STA (20:32)
[2021-08-17 20:40] LABS: Bilirubin,Total 1.2 MG/DL (0.20-1.00); Calcium 9.7 MG/DL (8.5-10.1); Osmolality,Calculated 276.5 MOS/KG (273-304); Potassium 4.3 MMOL/L (3.5-5.1); Total Protein 7.3 G/DL (6.4-8.2)
[2021-08-17] MEDS ORDERED: ONDANSETRON 4 MG/2 ML VIAL IV STA (20:53)
[2021-08-17] MEDS ORDERED: MORPHINE 2 MG/1 ML SYRINGE IV STA (20:55)
[2021-08-17] MEDS ORDERED: ACETAMINOPHEN 325 MG TABLET PO PRN (21:16)
[2021-08-17] MEDS ORDERED: guaiFENesin/DM ER 600-30 MG TABLET PO PRN (21:16)
[2021-08-17] MEDS ORDERED: NICOTINE 21 MG/24 HR PATCH TRANSDERM PRN (21:16)
[2021-08-17] MEDS ORDERED: DEXTROSE 50% 25 GM/50 ML VIAL IV PRN (21:16)
[2021-08-17] MEDS ORDERED: MORPHINE 2 MG/1 ML SYRINGE IV PRN (21:16)
[2021-08-17] MEDS ORDERED: ONDANSETRON 4 MG/2 ML VIAL IV PRN (21:16)
[2021-08-17] MEDS ORDERED: GLUCAGON 1 MG VIAL IM PRN ×2 (21:16)
[2021-08-17] MEDS ORDERED: ZALEPLON 5 MG CAPSULE PO PRN (21:16)
[2021-08-17] MEDS ORDERED: hydrALAZINE 20 MG/1 ML VIAL IV PRN (21:16)
[2021-08-17] MEDS ORDERED: diphenhydrAMINE CAP 25 MG CAPSULE PO PRN (21:16)
[2021-08-17] MEDS ORDERED: DEXTROSE 10% 250 ML BAG IV PRN (21:28)
[2021-08-17 21:31] LABS: Partial Thromboplastin Time 42.5 SECS (23.8-32.1)
[2021-08-17] MEDS ORDERED: SODIUM CHLORIDE 0.9% 500 ML IV STA (22:30)
[2021-08-18] MEDS: ALBUTEROL/IPRATROPIUM 3 ML NEB RESP TX SCH ×5 (00:03→23:41)
[2021-08-18 04:39] LABS: Albumin 2.4 G/DL (3.4-5.0); Calcium 8.6 MG/DL (8.5-10.1); Osmolality,Calculated 281.4 MOS/KG (273-304); Potassium 3.6 MMOL/L (3.5-5.1); Total Protein 5.4 G/DL (6.4-8.2)
[2021-08-18 04:54] LABS: Basophils % 0.2 % (0.0-0.8); Eosinophils % 0.2 % (0.00-10.9); Hematocrit 29.7 VOL% (42.0-52.0); Immature Granulocytes % 0.6 %; Immature Granulocytes Absolute 0.03 #; Lymphocytes # 0.8 10*3/uL (1.4-4.0); Lymphocytes % 15.3 % (21.2-54.2); Mean Corpuscular HGB Conc 32.3 GM/DL (32-36); Mean Corpuscular Volume 83.9 FL (87-102); Mean Platelet Volume 12.1 FL (9.6-12.0); Monocytes # 0.5 10*3/uL (0.11-0.8); Monocytes % 10.1 % (1.7-12.7); Neutrophils % 73.6 % (38.7-73.9); Red Cell Distribution Width 16.5 % (9.3-17.3); White Blood Count 5.2 T/CUMM (4-12)
[2021-08-18 05:03] LABS: Hemoglobin 9.6 GM/DL (14.0-18.0); Platelet Count 161 T/CUMM (130-400); Red Blood Count 3.54 MC/CUMM (3.8-5.5)
[2021-08-18] MEDS: INSULIN LISPRO 100 UNIT/ML SUBCUT SCH ×4 (07:35→21:42)
[2021-08-18] MEDS: FUROSEMIDE 40 MG/4 ML VIAL IV SCH ×2 (07:50→17:21)
[2021-08-18] MEDS: BISACODYL 5 MG TABLET PO SCH (09:15)
[2021-08-18] MEDS: APIXABAN 2.5 MG TABLET PO SCH ×2 (09:15→20:51)
[2021-08-18] MEDS: PANTOPRAZOLE 40 MG TABLET PO SCH (09:15)
[2021-08-18 14:59] LABS: Hematocrit 34.2 VOL% (42.0-52.0); Hemoglobin 10.7 GM/DL (14.0-18.0)
[2021-08-19] MEDS: ALBUTEROL/IPRATROPIUM 3 ML NEB RESP TX SCH ×3 (07:40→19:06)
[2021-08-19] MEDS: INSULIN LISPRO 100 UNIT/ML SUBCUT SCH ×4 (08:21→22:34)
[2021-08-19] MEDS: FUROSEMIDE 40 MG/4 ML VIAL IV SCH ×2 (09:09→16:31)
[2021-08-19] MEDS: BISACODYL 5 MG TABLET PO SCH (09:09)
[2021-08-19] MEDS: PANTOPRAZOLE 40 MG TABLET PO SCH (09:09)
[2021-08-19] MEDS: APIXABAN 2.5 MG TABLET PO SCH ×2 (09:09→21:46)
[2021-08-19 11:46] LABS: Basophils % 0.8 % (0.0-0.8); Eosinophils # 0.2 10*3/uL (0.0-0.87); Eosinophils % 4.6 % (0.00-10.9); Hematocrit 34.2 VOL% (42.0-52.0); Hemoglobin 10.9 GM/DL (14.0-18.0); Immature Granulocytes % 0.3 %; Immature Granulocytes Absolute 0.01 #; Lymphocytes # 0.8 10*3/uL (1.4-4.0); Lymphocytes % 19.3 % (21.2-54.2); Mean Corpuscular HGB Conc 31.9 GM/DL (32-36); Mean Platelet Volume 12.3 FL (9.6-12.0); Monocytes # 0.5 10*3/uL (0.11-0.8); Monocytes % 12.1 % (1.7-12.7); Neutrophils % 62.9 % (38.7-73.9); Platelet Count 177 T/CUMM (130-400); Red Blood Count 4.07 MC/CUMM (3.8-5.5); Red Cell Distribution Width 16.7 % (9.3-17.3); White Blood Count 3.9 T/CUMM (4-12)
[2021-08-19 11:58] LABS: Albumin 2.6 G/DL (3.4-5.0); Bilirubin,Total 1.1 MG/DL (0.20-1.00); Calcium 8.7 MG/DL (8.5-10.1); Potassium 3.2 MMOL/L (3.5-5.1); Total Protein 5.9 G/DL (6.4-8.2)
[2021-08-20] MEDS: ALBUTEROL/IPRATROPIUM 3 ML NEB RESP TX SCH ×4 (00:08→19:26)
[2021-08-20 05:34] LABS: Eosinophils # 0.2 10*3/uL (0.0-0.87); Eosinophils % 5.8 % (0.00-10.9); Hematocrit 33.1 VOL% (42.0-52.0); Hemoglobin 10.5 GM/DL (14.0-18.0); Immature Granulocytes % 0.2 %; Immature Granulocytes Absolute 0.01 #; Lymphocytes # 0.9 10*3/uL (1.4-4.0); Lymphocytes % 22.6 % (21.2-54.2); Mean Corpuscular HGB Conc 31.7 GM/DL (32-36); Mean Corpuscular Volume 84.2 FL (87-102); Mean Platelet Volume 11.9 FL (9.6-12.0); Monocytes # 0.8 10*3/uL (0.11-0.8); Monocytes % 18.5 % (1.7-12.7); Neutrophils % 51.9 % (38.7-73.9); Platelet Count 179 T/CUMM (130-400); Red Blood Count 3.93 MC/CUMM (3.8-5.5); Red Cell Distribution Width 16.6 % (9.3-17.3); White Blood Count 4.2 T/CUMM (4-12)
[2021-08-20 05:51] LABS: Calcium 8.7 MG/DL (8.5-10.1)
[2021-08-20 05:58] LABS: Eosinophils 8 % (0-10); Lymphocytes 21 % (20-55); Total Cells Counted 100
[2021-08-20 05:59] LABS: Acanthocytes Few; Anisocytosis 1+; Microcytosis 1+; Ovalocytes Slight; Platelet Estimate Adequate; Target Cells Slight
[2021-08-20] MEDS ORDERED: ACETAMINOPHEN 500 MG TABLET PO PRN (07:09)
[2021-08-20] MEDS ORDERED: POTASSIUM CHLORIDE 20 MEQ TABLET PO ONE (08:52)
[2021-08-20] MEDS: BISACODYL 5 MG TABLET PO SCH (09:35)
[2021-08-20] MEDS: FUROSEMIDE 40 MG/4 ML VIAL IV SCH ×2 (09:35→16:40)
[2021-08-20] MEDS: PANTOPRAZOLE 40 MG TABLET PO SCH (09:35)
[2021-08-20] MEDS: APIXABAN 2.5 MG TABLET PO SCH ×2 (09:35→20:41)
[2021-08-20] MEDS: ASPIRIN EC 81 MG TABLET PO SCH (09:35)
[2021-08-20] MEDS: carvediloL 3.125 MG TABLET PO SCH ×2 (09:35→20:42)
[2021-08-20] MEDS: POTASSIUM CHLORIDE 20 MEQ TABLET PO SCH ×2 (10:29→14:05)
[2021-08-20] MEDS: INSULIN LISPRO 100 UNIT/ML SUBCUT SCH ×4 (10:30→20:42)
[2021-08-20] MEDS ORDERED: SENNA 8.6 MG TABLET PO PRN (15:22)
[2021-08-20] MEDS ORDERED: FLUTICASONE 50 MCG NASAL SPRAY 16 GM BOTTLE BOTH NARES PRN (15:22)
[2021-08-20] MEDS: MAGNESIUM OXIDE 400 MG TABLET PO SCH (20:41)
[2021-08-20] MEDS ORDERED: ROSUVASTATIN 20 MG TABLET PO SCH (21:00)
[2021-08-20] MEDS ORDERED: LATANOPROST 0.005% OPH SOLN 2.5 ML BOTTLE LEFT EYE SCH (21:00)
[2021-08-20] MEDS ORDERED: BRIMONIDINE 0.2% OPH SOLN 5 ML BOTTLE BOTH EYES SCH (21:00)
[2021-08-21] MEDS: ALBUTEROL/IPRATROPIUM 3 ML NEB RESP TX SCH ×2 (00:18→07:29)
[2021-08-21 05:11] LABS: Basophils # 0.1 10*3/uL (0.0-0.2); Basophils % 1.6 % (0.0-0.8); Eosinophils # 0.2 10*3/uL (0.0-0.87); Eosinophils % 5.1 % (0.00-10.9); Hematocrit 37.4 VOL% (42.0-52.0); Hemoglobin 11.6 GM/DL (14.0-18.0); Immature Granulocytes % 0.2 %; Immature Granulocytes Absolute 0.01 #; Lymphocytes # 1.1 10*3/uL (1.4-4.0); Lymphocytes % 24.4 % (21.2-54.2); Mean Corpuscular Volume 85.4 FL (87-102); Mean Platelet Volume 11.5 FL (9.6-12.0); Monocytes # 0.7 10*3/uL (0.11-0.8); Neutrophils % 52.7 % (38.7-73.9); Platelet Count 182 T/CUMM (130-400); Red Blood Count 4.38 MC/CUMM (3.8-5.5); Red Cell Distribution Width 16.8 % (9.3-17.3); White Blood Count 4.3 T/CUMM (4-12)
[2021-08-21 05:29] LABS: Calcium 8.7 MG/DL (8.5-10.1); Potassium 3.2 MMOL/L (3.5-5.1)
[2021-08-21 05:30] LABS: Albumin 2.9 G/DL (3.4-5.0); Bilirubin,Direct 0.57 MG/DL (0.0-0.20); Bilirubin,Indirect 0.4 MG/DL (0.0-1.0); Total Protein 6.3 G/DL (6.4-8.2)
[2021-08-21 05:43] LABS: Eosinophils 8 % (0-10); Lymphocytes 21 % (20-55); Total Cells Counted 100
[2021-08-21 05:44] LABS: Acanthocytes Few; Anisocytosis 1+; Hypochromia 1+; Microcytosis 1+; Target Cells Slight
[2021-08-21 05:45] LABS: Ovalocytes Slight; Platelet Estimate Adequate
[2021-08-21] MEDS ORDERED: LINACLOTIDE 145 MCG CAPSULE PO SCH (06:00)
[2021-08-21] MEDS: INSULIN LISPRO 100 UNIT/ML SUBCUT SCH ×2 (08:49→11:19)
[2021-08-21] MEDS ORDERED: CITALOPRAM 20 MG TABLET PO SCH (09:00)
[2021-08-21] MEDS ORDERED: allopurinoL 100 MG TABLET PO SCH (09:00)
[2021-08-21] MEDS: APIXABAN 2.5 MG TABLET PO SCH (09:10)
[2021-08-21] MEDS: carvediloL 3.125 MG TABLET PO SCH (09:10)
[2021-08-21] MEDS: PANTOPRAZOLE 40 MG TABLET PO SCH (09:10)
[2021-08-21] MEDS: FUROSEMIDE 40 MG/4 ML VIAL IV SCH (09:10)
[2021-08-21] MEDS: ASPIRIN EC 81 MG TABLET PO SCH (09:11)
[2021-08-21] MEDS: MAGNESIUM OXIDE 400 MG TABLET PO SCH (09:11)
[2021-08-21] MEDS: BISACODYL 5 MG TABLET PO SCH (09:12)
[2021-08-21] MEDS ORDERED: POTASSIUM CHLORIDE 20 MEQ TABLET PO ONE (09:35)
[2021-08-21 12:16] VITALS: BP 128/96
== END 2021-08-21 14:15 | disposition home or self-care (01) | DRG 291 ==
LOC: N.ED 19:33 → SUATTDRO 21:16 → N.EDINP 22:51 → N.TELEN 08-18 13:05
PROVIDERS: ADMIT Family Medicine; ATTEND Internal Medicine

== ENCOUNTER 2021-09-14 16:26 | Inpatient (IN) ==
[2021-09-14 17:53] LABS: Basophils # 0.1 10*3/uL (0.0-0.2); Basophils % 1.1 % (0.0-0.8); Eosinophils # 0.2 10*3/uL (0.0-0.87); Eosinophils % 4.3 % (0.00-10.9); Hematocrit 34.2 VOL% (42.0-52.0); Hemoglobin 10.8 GM/DL (14.0-18.0); Immature Granulocytes % 0.5 %; Immature Granulocytes Absolute 0.02 #; Lymphocytes # 0.8 10*3/uL (1.4-4.0); Lymphocytes % 17.6 % (21.2-54.2); Mean Corpuscular HGB Conc 31.6 GM/DL (32-36); Mean Corpuscular Volume 84.4 FL (87-102); Mean Platelet Volume 10.9 FL (9.6-12.0); Monocytes # 0.3 10*3/uL (0.11-0.8); Monocytes % 6.6 % (1.7-12.7); Neutrophils % 69.9 % (38.7-73.9); Platelet Count 169 T/CUMM (130-400); Red Blood Count 4.05 MC/CUMM (3.8-5.5); Red Cell Distribution Width 17.6 % (9.3-17.3); White Blood Count 4.4 T/CUMM (4-12)
[2021-09-14 18:43] LABS: Albumin 2.7 G/DL (3.4-5.0); Bilirubin,Total 1.5 MG/DL (0.20-1.00); Osmolality,Calculated 268.8 MOS/KG (273-304); Total Protein 6.2 G/DL (6.4-8.2)
[2021-09-14] MEDS ORDERED: SODIUM CHLORIDE 0.9% 500 ML IV STA (18:51)
[2021-09-14] MEDS ORDERED: DOBUTamine 500 MG/250 ML PREMIX IV PRN (20:12)
[2021-09-14] MEDS ORDERED: POTASSIUM CHLORIDE 20 MEQ TABLET PO STA (20:14)
[2021-09-14 20:49] LABS: Bacteria,Urine Occasional /HPF (Few); RBC,Urine 12 /HPF (0-4); Squamous Epithelial Cell,Urine Occasional /HPF (0-10)
[2021-09-14 20:50] LABS: Bilirubin,Urine Negative (Negative); Blood, Urine Moderate mg/dL (Negative); Glucose,Urine (UA) >=1000 mg/dL (Negative); Protein,Urine 100 mg/dL (Negative); Urine Appearance Clear (Clear); Urine Color Yellow (Yellow); Urine Urobilinogen 0.2 eU/dL (<2.0)
[2021-09-14 20:51] LABS: Ketones,Urine Negative (Negative); Nitrite,Urine Negative (Negative)
[2021-09-14] MEDS ORDERED: SODIUM CHLOR 0.9% KCL 40 MEQ 40 MEQ/1,000 ML BAG IV SCH (21:30)
[2021-09-14] MEDS ORDERED: ONDANSETRON 4 MG/2 ML VIAL IV PRN (23:35)
[2021-09-14] MEDS ORDERED: guaiFENesin/DM ER 600-30 MG TABLET PO PRN (23:35)
[2021-09-14] MEDS ORDERED: DEXTROSE 10% 250 ML BAG IV PRN (23:35)
[2021-09-14] MEDS ORDERED: diphenhydrAMINE CAP 25 MG CAPSULE PO PRN (23:35)
[2021-09-14] MEDS ORDERED: GLUCAGON 1 MG VIAL IM PRN (23:35)
[2021-09-14] MEDS ORDERED: NICOTINE 21 MG/24 HR PATCH TRANSDERM PRN (23:35)
[2021-09-14] MEDS ORDERED: hydrALAZINE 20 MG/1 ML VIAL IV PRN (23:35)
[2021-09-14] MEDS ORDERED: ZALEPLON 5 MG CAPSULE PO PRN (23:35)
[2021-09-15] MEDS: SODIUM CHLORIDE 0.9% 1,000 ML IV SCH ×2 (00:25→16:38)
[2021-09-15] MEDS: ALBUTEROL/IPRATROPIUM 3 ML NEB RESP TX SCH ×4 (00:46→18:29)
[2021-09-15 02:48] LABS: Basophils # 0.1 10*3/uL (0.0-0.2); Basophils % 1.8 % (0.0-0.8); Eosinophils # 0.3 10*3/uL (0.0-0.87); Eosinophils % 6.1 % (0.00-10.9); Hematocrit 34.1 VOL% (42.0-52.0); Hemoglobin 10.9 GM/DL (14.0-18.0); Immature Granulocytes % 0.5 %; Immature Granulocytes Absolute 0.02 #; Lymphocytes % 21.6 % (21.2-54.2); Mean Platelet Volume 11.1 FL (9.6-12.0); Monocytes # 0.4 10*3/uL (0.11-0.8); Monocytes % 8.6 % (1.7-12.7); Neutrophils % 61.4 % (38.7-73.9); Platelet Count 154 T/CUMM (130-400); Red Blood Count 4.06 MC/CUMM (3.8-5.5); Red Cell Distribution Width 17.7 % (9.3-17.3); White Blood Count 4.4 T/CUMM (4-12)
[2021-09-15] MEDS: ACETAMINOPHEN 325 MG TABLET PO PRN (02:49)
[2021-09-15 03:51] LABS: Albumin 2.5 G/DL (3.4-5.0); Bilirubin,Total 1.5 MG/DL (0.20-1.00); Calcium 8.8 MG/DL (8.5-10.1); Osmolality,Calculated 274.2 MOS/KG (273-304); Potassium 3.2 MMOL/L (3.5-5.1)
[2021-09-15] MEDS: ASPIRIN EC 81 MG TABLET PO SCH (08:56)
[2021-09-15] MEDS: PANTOPRAZOLE 40 MG TABLET PO SCH (08:57)
[2021-09-15] MEDS: APIXABAN 2.5 MG TABLET PO SCH (08:57)
[2021-09-15] MEDS: POTASSIUM CHLORIDE 20 MEQ TABLET PO SCH (08:57)
[2021-09-15] MEDS ORDERED: DOBUTamine 500 MG/250 ML PREMIX IV SCH (10:00)
[2021-09-15] MEDS ORDERED: POTASSIUM CHLORIDE 20 MEQ TABLET PO ONE (11:00)
[2021-09-15] MEDS ORDERED: DOBUTamine 500 MG/250 ML PREMIX IV PRN (16:00)
[2021-09-15] MEDS: CYPROHEPTADINE 4 MG TABLET PO SCH ×2 (16:36→23:00)
[2021-09-15 18:02] VITALS: BP 80/57
[2021-09-15] MEDS ORDERED: SODIUM CHLORIDE 0.9% 250 ML IV ONE (19:20)
[2021-09-15] MEDS ORDERED: AMIODARONE INJ 150 MG in DEXTROSE 5% 100 ML IV ONE (19:21)
[2021-09-15] MEDS ORDERED: SODIUM CHLORIDE 0.9% 1,000 ML IV SCH (19:30)
[2021-09-15] MEDS ORDERED: AMIODARONE INJ 450 MG in DEXTROSE 5% 241 ML IV SCH (19:30)
[2021-09-15] MEDS ORDERED: CLORAZEPATE 3.75 MG TABLET PO ONE (20:29)
[2021-09-15] MEDS ORDERED: PHENYLEPHRINE DRIP 40 MG/250 ML PREMIX IV ONE (20:54)
[2021-09-15] MEDS ORDERED: EPINEPHrine 1 MG/10 ML SYRINGE IV ONE ×2 (20:56→21:02)
[2021-09-15] MEDS ORDERED: ETOMIDATE 20 MG/10 ML VIAL IV ONE ×2 (20:56→20:59)
[2021-09-15] MEDS ORDERED: ROCURONIUM 100 MG/10 ML VIAL IV ONE (20:56)
[2021-09-15] MEDS ORDERED: SODIUM BICARBONATE 50 MEQ/50 ML SYRINGE IV ONE (20:57)
[2021-09-15] MEDS: PHENYLEPHRINE DRIP 40 MG/250 ML PREMIX IV PRN ×2 (21:00→23:18)
[2021-09-15] MEDS ORDERED: ROSUVASTATIN 20 MG TABLET PO SCH (21:00)
[2021-09-15] MEDS ORDERED: CALCIUM CHLORIDE 1,000 MG/10 ML SYRINGE IV ONE (21:02)
[2021-09-15] MEDS ORDERED: MIDAZOLAM 2 MG/2 ML VIAL IV ONE (21:16)
[2021-09-15] MEDS: MIDAZOLAM 100 MG in SODIUM CHLORIDE 0.9% 80 ML IV PRN (21:27)
[2021-09-15] MEDS: DOPamine 800 MG/250 ML PREMIX IV PRN (21:42)
[2021-09-15 21:54] LABS: ABG Base Excess -13.3 MMOL/L (-2.5-2.5); ABG HCO3 13.2 MMOL/L (20-26); ABG Oxygen Saturation 29.5 % (95-100); ABG TCO2 16.6 MMOL/L (23-27)
[2021-09-15 21:57] LABS: Mucus,Urine Occasional /LPF (Occasional); Sperm,Urine Moderate /HPF (Negative)
[2021-09-15 21:58] LABS: Bilirubin,Urine Negative (Negative); Blood, Urine Trace mg/dL (Negative); Glucose,Urine (UA) >1000 mg/dL (Negative); Ketones,Urine Negative (Negative); Nitrite,Urine Negative (Negative); Protein,Urine >=300 mg/dL (Negative); Urine Appearance Clear (Clear); Urine Color Yellow (Yellow); Urine Specific Gravity 1.015 (1.001-1.035); Urine pH 6.5 (4.5-8.0)
[2021-09-15 21:59] LABS: ABG PH 7.089 (7.35-7.45); ABG PO2 32.5 MM HG (80-95)
[2021-09-15 21:59] LABS: Urine Urobilinogen 0.2 eU/dL (<2.0)
[2021-09-15 22:14] LABS: INR 1.5; Partial Thromboplastin Time 35.1 SECS (23.7-32.9)
[2021-09-15 22:16] LABS: Alanine Aminotransferase 45 U/L (16-61); Albumin 2.3 G/DL (3.4-5.0); Alkaline Phosphatase 205 U/L (45-117); Aspartate Amino Transferase 79 U/L (0-37); Blood Urea Nitrogen 27 MG/DL (7-18); Calcium 9.9 MG/DL (8.5-10.1); Carbon Dioxide 17 MMOL/L (21-32); Chloride 97 MMOL/L (98-107); Glucose 113 MG/DL (74-106); Osmolality,Calculated 267.7 MOS/KG (273-304); Potassium 5.3 MMOL/L (3.5-5.1); Sodium 131 MMOL/L (136-145); Total Protein 5.7 G/DL (6.4-8.2)
[2021-09-15 22:19] LABS: Basophils # 0.1 10*3/uL (0.0-0.2); Basophils % 0.8 % (0.0-0.8); Eosinophils # 0.2 10*3/uL (0.0-0.87); Eosinophils % 2.2 % (0.00-10.9); Hematocrit 39.5 VOL% (42.0-52.0); Hemoglobin 11.5 GM/DL (14.0-18.0); Immature Granulocytes % 4.1 %; Immature Granulocytes Absolute 0.29 #; Lymphocytes # 1.6 10*3/uL (1.4-4.0); Lymphocytes % 21.9 % (21.2-54.2); Mean Corpuscular HGB Conc 29.1 GM/DL (32-36); Mean Corpuscular Volume 92.3 FL (87-102); Mean Platelet Volume 11.4 FL (9.6-12.0); Monocytes # 0.4 10*3/uL (0.11-0.8); Monocytes % 5.4 % (1.7-12.7); NRBC # 0.05 10*3/uL; Neutrophils % 65.6 % (38.7-73.9); Platelet Count 156 T/CUMM (130-400); Red Blood Count 4.28 MC/CUMM (3.8-5.5); Red Cell Distribution Width 18.7 % (9.3-17.3); White Blood Count 7.2 T/CUMM (4-12)
[2021-09-15 22:51] LABS: Band Neutrophils 1 % (0-10); Eosinophils 3 % (0-10); Lymphocytes 24 % (20-55); Metamyelocytes 1 %; Total Cells Counted 100
[2021-09-15 22:53] LABS: Atypical Lymphocytes Few; Platelet Estimate Normal; Polychromasia Few; Reactive Lymphocytes 3+
[2021-09-15 22:54] LABS: Ovalocytes 1+
[2021-09-15] MEDS ORDERED: fentaNYL INJ 1,250 MCG in SODIUM CHLORIDE 0.9% 225 ML IV PRN (23:06)
[2021-09-16] MEDS: APIXABAN 2.5 MG TABLET PO SCH ×2 (00:06→08:44)
[2021-09-16] MEDS: ALBUTEROL/IPRATROPIUM 3 ML NEB RESP TX SCH ×4 (01:06→20:41)
[2021-09-16] MEDS ORDERED: AMIODARONE INJ 450 MG in DEXTROSE 5% 241 ML IV SCH (01:30)
[2021-09-16] MEDS: PHENYLEPHRINE INJ 160 MG in SODIUM CHLORIDE 0.9% 234 ML IV PRN ×3 (01:31→17:32)
[2021-09-16 03:57] LABS: Basophils % 0.6 % (0.0-0.8); Eosinophils % 0.3 % (0.00-10.9); Hematocrit 40.7 VOL% (42.0-52.0); Hemoglobin 12.4 GM/DL (14.0-18.0); Immature Granulocytes % 0.6 %; Immature Granulocytes Absolute 0.02 #; Lymphocytes # 0.6 10*3/uL (1.4-4.0); Lymphocytes % 18.4 % (21.2-54.2); Mean Corpuscular HGB Conc 30.5 GM/DL (32-36); Mean Corpuscular Volume 87.5 FL (87-102); Mean Platelet Volume 11.5 FL (9.6-12.0); Monocytes # 0.2 10*3/uL (0.11-0.8); Monocytes % 5.2 % (1.7-12.7); NRBC # 0.02 10*3/uL; Neutrophils % 74.9 % (38.7-73.9); Red Blood Count 4.65 MC/CUMM (3.8-5.5); Red Cell Distribution Width 18.5 % (9.3-17.3)
[2021-09-16 04:01] LABS: Platelet Count 200 T/CUMM (130-400); White Blood Count 3.5 T/CUMM (4-12)
[2021-09-16 04:10] LABS: Calcium 8.9 MG/DL (8.5-10.1); Osmolality,Calculated 279.8 MOS/KG (273-304); Potassium 4.8 MMOL/L (3.5-5.1)
[2021-09-16 07:12] LABS: Band Neutrophils 9 % (0-10); Eosinophils 1 % (0-10); Lymphocytes 21 % (20-55); Metamyelocytes 7 %; Total Cells Counted 100
[2021-09-16 07:13] LABS: Hypochromia 1+; Platelet Estimate Normal
[2021-09-16 07:16] LABS: Atypical Lymphocytes Few
[2021-09-16 07:18] LABS: Ovalocytes 1+; Polychromasia Few; Reactive Lymphocytes Few
[2021-09-16] MEDS: DOPamine 800 MG/250 ML PREMIX IV PRN ×2 (08:43→14:05)
[2021-09-16] MEDS: ASPIRIN EC 81 MG TABLET PO SCH (08:44)
[2021-09-16] MEDS: POTASSIUM CHLORIDE 20 MEQ TABLET PO SCH (08:44)
[2021-09-16] MEDS: PANTOPRAZOLE 40 MG TABLET PO SCH (08:44)
[2021-09-16 10:35] LABS: ABG Base Excess -5.7 MMOL/L (-2.5-2.5); ABG HCO3 18.6 MMOL/L (20-26); ABG Oxygen Saturation 36.3 % (95-100); ABG PCO2 52.8 MM HG (35-48); ABG PH 7.236 (7.35-7.45); ABG TCO2 20.6 MMOL/L (23-27)
[2021-09-16 10:37] LABS: ABG PO2 28.9 MM HG (80-95)
[2021-09-16 11:16] LABS: ABG Base Excess -8.4 MMOL/L (-2.5-2.5); ABG HCO3 17.7 MMOL/L (20-26); ABG Oxygen Saturation 95.4 % (95-100); ABG PCO2 35.6 MM HG (35-48); ABG PH 7.297 (7.35-7.45); ABG PO2 89.5 MM HG (80-95); ABG TCO2 15.5 MMOL/L (23-27)
[2021-09-16] MEDS: MIDAZOLAM 100 MG in SODIUM CHLORIDE 0.9% 80 ML IV PRN (12:33)
[2021-09-16] MEDS ORDERED: DOBUTamine 500 MG/250 ML PREMIX IV PRN (12:45)
[2021-09-16] MEDS ORDERED: DEXTROSE 50% 25 GM/50 ML SYRINGE IV ONE (14:12)
[2021-09-16] MEDS ORDERED: HYDROCORTISONE 100 MG VIAL IV ONE (15:00)
[2021-09-16] MEDS ORDERED: DEXTROSE 10% 250 ML BAG IV ONE (15:00)
[2021-09-16] MEDS ORDERED: DEXTROSE 5% 1,000 ML IV SCH (15:00)
[2021-09-16] MEDS: ACETAMINOPHEN 325 MG TABLET PO PRN (17:05)
[2021-09-16] MEDS ORDERED: PIPERACILLIN/TAZOBACTAM 3,375 MG in SODIUM CHLORIDE 0.9% 100 ML IV ONE (17:30)
[2021-09-16] MEDS ORDERED: HYDROCORTISONE 100 MG VIAL IV SCH (22:00)
== END 2021-09-16 17:51 | disposition expired | DRG 291 ==
LOC: N.ED 16:26 → N.EDINP 23:35 → SUATTDRO 23:35 → N.TELES 09-15 00:19 → N.CC 09-15 19:16
PROVIDERS: ADMIT Family Medicine; ATTEND Internal Medicine